=== PATIENT | female | born 2000 | race Caucasian/White ===

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

== ENCOUNTER 2021-01-01 11:42 | Emergency (ER) | payer MEDICAID, SELFPAY ==
[2021-01-01 11:47] VITALS: BP 192/159; PULSE 111; RESP 22; TEMP 36.9; O2SAT 98; BMI 42.0
--- NOTE | 2021-01-01 11:58 | ED_ITS ---
HPI - Abdominal Pain General: Chief Complaint: Urogenital-Female Stated Complaint: adverse med reaction: midol Time Seen by Provider: 01/01/21 11:51 Source: patient Mode of arrival: ambulatory Limitations: no limitations History of Present Illness: HPI narrative: Patient is a 20-year-old female who presents to ED today with a complaint of lower abdominal and pelvic pain that be vira earlier today while at work. Patient tells me she is expecting to start her menstrual cycle soon and initially thought the pain was secondary to menstrual cramps. She tried treating with Midol without relief. Patient has a known history of PCOS and often has pain accompanying this however states this is very uncharacteristic. She is not complaining of vaginal discharge or vaginal odor. No new sexual partners or concern for STDs. She is not having urinary symptoms. She states her pain radiates into her back. She feels nauseous but has not had any episodes of vomiting. She chronically has intermittent diarrhea secondary to Metformin use. She has not noticed any changes in her bowel movement. She reports no chance of . No fever/chills. MD elicited complaint: abdominal pain (pelvic pain) Pertinent past history: none Onset (ago): hour(s) Pain Consistency: constant Location: Suprapubic and Pelvis Quality: cramping Radiation: back Migration to: no migration Exacerbating factors: nothing Relieving factors: nothing Associated Symptoms: Reports diarrhea (chronic-intermittent; reports due to metformin use) and nausea; Denies change in bowel habits, change in stool character, chills, dysuria, fever(s), hematochezia, melena and vomiting Related Data: Date of Last Menstrual Period: 02/10/20 Patient : No Review of Systems Const: Denies: fever(s), chills, body aches, fatigue or malaise Card: Denies: chest pain Resp: Denies: dyspnea GI: Reports: abdominal pain, nausea and diarrhea (chronic-intermittent; reports due to metformin use); Denies: vomiting, change in bowel habits, pain on defecation, change in stool character, hematochezia or melena : Denies: flank pain, difficulty voiding, dysuria, urinary frequency, urinary urgency or urinary hesitancy Musc: Reports: back pain; Denies: neck pain, extremity pain, extremity swelling, joint pain or joint swelling Skin/Breast: Denies: rash Neuro: Denies: headache(s) PFS ED PFS: Medical History (Updated 01/01/21 @ 14:23 by FRIDA Mcdonald) Bipolar disorder Polycystic ovaries Social anxiety disorder Surgical History No pertinent past surgical history Family History Grandmother Ovarian cancer maternal Diabetes maternal Mother Hypertension Stroke Social History Smoking and tobacco status: never smoked Alcohol intake: never Female Reproductive History: Date of last menstrual period: 02/10/20 Physical Exam Const: COMMON NORMALS: patient oriented x3, no limitations and alert GENERAL APPEARANCE: cooperative and in distress (appears uncomfortable secondary to pain) NUTRITIONAL APPEARANCE: obese ORIENTATION/CONSCIOUSNESS: Yes awake, Yes oriented to person, Yes oriented to place and Yes oriented to time HENMT: COMMON NORMALS: normocephalic and atraumatic HEAD & SCALP: normocephalic and atraumatic Resp: COMMON NORMALS: normal respiratory effort and clear to auscultation bilaterally AUSCULTATION: clear to auscultation bilaterally Cardio: COMMON NORMALS: regular rate and regular rhythm RATE: regular rate RHYTHM: regular rhythm GI: COMMON NORMALS: Normal to inspection, nondistended, normoactive bowel sounds present, Soft to palpation, No hepatosplenomegaly present and no masses AUSCULTATION: Yes normoactive bowel sounds PALPATION: Yes Soft to palpation, Yes Tenderness to palpation present (GI) (throughout lower abdomen/pelvis) and Yes No hepatosplenomegaly present : COMMON NORMALS: Yes no CVA tenderness BLADDER/KIDNEY EXAM: Yes no CVA tenderness Back/Pelvis: COMMON NORMALS: no CVA tenderness THORACIC SPINE/UPPER BACK: Yes thoracic ROM normal and No thoracic spinal tenderness LUMBAR SPINE/LOWER BACK: Yes lumbar ROM normal, No lumbar spinal tenderness and Yes paraspinal muscle tenderness PELVIS: Yes buttocks normal SACROILIAC JOINTS: Yes SI j oints normal BACK IMAGE (FEMALE): 1. 2. Extremity: GENERAL: Yes normal exam except as noted Neuro: COMMON NORMALS: patient oriented x3 SENSORIUM/ORIENTATION: Yes alert, Yes oriented to person, Yes oriented to place and Yes oriented to time Skin: COMMON NORMALS: no rashes or lesions noted GENERAL SKIN EXAM: no rashes or lesions noted TRAUMA: no lacerations or abrasions Course Vital Signs: Vital signs: Vital Signs Temperature 98.5 F 01/01/21 11:47 Pulse Rate 99 01/01/21 13:28 Respiratory Rate 18 01/01/21 13:28 Blood Pressure 149/91 01/01/21 13:28 Pulse Oximetry 99 01/01/21 13:28 MDM - Abdominal Pain MDM Narrative: Medical decision making narrative: Patient's vital signs are stable. She was initially hypertensive and tachycardic upon arrival however these improved after IV pain medication. She does have an 18.6 white count with a left shift. She has a normal lactate. Chemistry panel is negative. is negative. UA is normal. Ultrasound of her pelvis showing minimal nonspecific fluid in the endocervical canal. She has a possible endometrial polyp. Remainder of pelvic ultrasound is normal. CT scan showing a few nonobstructing left renal calyceal stones and mild right lower quadrant mesenteric adenitis. All of these findings are nonspecific and I am not sure how much are contributing to patient's current complaints of pain. Ultimately none of the findings are surgical. She will be discharged home with pain and nausea medications and recommend follow-up with primary care if symptoms persist. Strict return to ED precautions given. Lab Data: Labs: Lab Results 01/01/21 01/01/21 01/01/21 Range/Units 12:10 12:10 12:10 WBC 18.6 H (4.5-13.0) 10^3/ uL RBC 4.86 (4.1-5.3) 10^6/u L Hgb 13.1 (11.5-15.3) g/dL Hct 39.4 (37.0-47.0) % MCV 81.1 (81-99) fL MCH 27.0 L (28.0-34.0) pg MCHC 33.2 (30.0-36.0) g/dL RDW 13.5 (12.1-15.1) % Plt Count 399 (130-400) 10^3/c mm MPV 10.5 H (7.4-10.4) fL Neut % (Auto) 79.7 % Lymph % (Auto) 15.9 % Moh[place] % (Auto) 3.5 % Eos % (Auto) 0.2 % Baso % (Auto) 0.3 % Neut # (Auto) 14.81 H (1.8-8.0) 10^3/u L Lymph # (Auto) 3.0 (1.5-6.5) 10^3/u L Moh[place] # (Auto) 0.7 (0.2-0.9) 10^3/u L Eos # (Auto) 0.0 (0.0-0.8) 10^3/u L Baso # (Auto) 0.1 (0.0-0.1) 10^3/u L Nucleated RBC % (a uto) 0 % Nucleated RBCs # 0.0 /100WBC Sodium Cancelled Potassium Cancelled Chloride Cancelled Carbon Dioxide Cancelled Anion Gap Cancelled BUN Cancelled Creatinine Cancelled GFR Calculation Cancelled Glucose Cancelled Calculated Osmolal ity Cancelled Lactic Acid (0.5-2.2) mmol/L Calcium Cancelled Total Bilirubin Cancelled AST Cancelled ALT Cancelled Alkaline Phosphata se Cancelled Total Protein Cancelled Albumin Cancelled Globulin Cancelled Lipase Cancelled HCG, Qual Negative (Negative) Urine Color (Yellow) Urine Appearance (CLEAR) Urine pH (5-7) Ur Specific Gravit y (1.005-1.030) Urine Protein (Negative) Urine Glucose (UA) (Normal) Urine Ketones (Negative) Urine Blood (Negative) Urine Nitrate (Negative) Urine Bilirubin (Negative) Urine Urobilinogen (Negative) mg/dL Ur Leukocyte Lauren ase (Negative) 01/01/21 01/01/21 01/01/21 Range/Units 12:10 12:50 13:10 WBC (4.5-13.0) 10^3/ uL RBC (4.1-5.3) 10^6/u L Hgb (11.5-15.3) g/dL Hct (37.0-47.0) % MCV (81-99) fL MCH (28.0-34.0) pg MCHC (30.0-36.0) g/dL RDW (12.1-15.1) % Plt Count (130-400) 10^3/c mm MPV (7.4-10.4) fL Neut % (Auto) % Lymph % (Auto) % [place] % (Auto) % Eos % (Auto) % Baso % (Auto) % Neut # (Auto) (1.8-8.0) 10^3/u L Lymph # (Auto) (1.5-6.5) 10^3/u L Moh[place] # (Auto) (0.2-0.9) 10^3/u L Eos # (Auto) (0.0-0.8) 10^3/u L Baso # (Auto) (0.0-0.1) 10^3/u L Nucleated RBC % (a uto) % Nucleated RBCs # /100WBC Sodium 141 Potassium 3.8 Chloride 107 Carbon Dioxide 20 L Anion Gap 17.8 BUN 16 Creatinine 0.6 GFR Calculation 128.8 Glucose 95 Calculated Osmolal ity 293 Lactic Acid 1.6 (0.5-2.2) mmol/L Calcium 9.3 Total Bilirubin 0.2 AST 12 ALT 11 Alkaline Phosphata se 104 Total Protein 7.3 Albumin 4.5 Globulin 2.8 Lipase 19 HCG, Qual (Negative) Urine Color Yellow (Yellow) Urine Appearance Clear (CLEAR) Urine pH 5 (5-7) Ur Specific Gravit y 1.025 (1.005-1.030) Urine Protein Neg (Negative) Urine Glucose (UA) Norm (Normal) Urine Ketones Negative (Negative) Urine Blood Neg (Negative) Urine Nitrate Negative (Negative) Urine Bilirubin Neg (Negative) Urine Urobilinogen Norm (Negative) mg/dL Ur Leukocyte Lauren ase Negative (Negative) Imaging Data ^: US TV pelvis: Radiologist's impression: [address] [id number] Ultrasound Report Signed Patient: Christo Mcduffie Unit #: [id number] : 2000 Age/Sex: 20 / F ADM Date: 01/01/21 Loc: ER Room/Bed: Attending Dr: Ordering Provider/Ordering MD: Ary Gonsales Date of Service: 01/01/21 Procedure(s): US pelvic with transvaginal Accession Number(s): [id number] Report Number: [id number] PROCEDURE INFORMATION: Exam: US Nonobstetric Pelvis; Complete Exam date and time: 01/01/2021 11:57 AM Age: 20 years old Clinical indication: Pelvic pain; Additional info: Severe pelvic pain TECHNIQUE: Imaging protocol: Transabdominal pelvic nonobstetric ultrasound. Complete exam. Real time ultrasound with image documentation. COMPARISON: CT abdomen pelvis w con* [id number] 02/22/2020 9:29 PM FINDINGS: Uterus/cervix: 6.4 x 2.4 x 3.1 cm uterus. 2.4 mm endometrial stripe. Minimal amount of nonspecific fluid seen in the endocervical canal. One or more nabothian cysts. Possible 8 x 4 mm endometrial polyp or other echogenic oval-shaped lesion within the lower uterine segment or proximal cervix, series 1, image 12. Right adnexa: 1.4 x 2.2 x 1.3 cm right ovary with estimated volume 2.1 cc. Left adnexa: 2.2 x 2.3 x 1.2 cm left ovary with estimated volume 3.2 cc. Intraperitoneal space: No intraperitoneal fluid. Urinary bladder: Normal. US/US pelvic with transvaginal IMPRESSION: 1. Minimal amount of nonspecific fluid seen in the endocervical canal. 2. Possible 8 x 4 mm endometrial polyp or other echogenic oval-shaped lesion within the lower uterine segment or proximal cervix, series 1, image 12. 3. Normal ovarian perfusion bilaterally with no torsion. Dictated By: Gucci Nielson MD Signed By: Gucci Nielson MD Signed Date/Time: 01/01/211400 DD/ 00 CT Abd/Pel: Radiologist's impression: [facility] [address] [id number] Scan ReportSigned Patient: Christo Mcduffie #: [id number]: 2000Acct#:[id number]/Sex: 20 / FADM Date: 01/01/21Loc: ERRoom/Bed:Attending Dr: Ordering Provider/Ordering MD: Ary Gonsales Date of Service: 01/01/21 Procedure(s): CT abdomen pelvis w con* [id number] Accession Number(s): [id number] Report Number: [id number] PROCEDURE INFORMATION: Exam: CT Abdomen And Pelvis With Contrast Exam date and time: 01/01/2021 12:21 PM Age: 20 years old Clinical indication: Abdominal pain; Localized; Patient HX: HX of pcos C/O severe lower abd pain; Additional info: Lower abdominal pain radiating to back TECHNIQUE: Imaging protocol: Computed tomography of the abdomen and pelvis with contrast. Radiation optimization: All CT scans at this facility use at least one of these dose optimization techniques: automated exposure control; mA and/or kV adjustment per patient size (includes targeted exams where dose is matched to clinical indication); or iterative reconstruction. Contrast material: OMNI 300; Contrast volume: 95 ml; Contrast route: INTRAVENOUS (IV); COMPARISON: CT abdomen pelvis w con* [id number] 02/22/2020 9:29 PM RADIATION DOSE METRICS: Total DLP (mGy-cm): 1839.81 FINDINGS: Liver: Normal. No mass. Gallbladder and bile ducts: Normal. No calcified stones. No ductal dilation. Pancreas: Normal. No ductal dilation. Spleen: Normal. No splenomegaly. Adrenal glands: Normal. No mass. Kidneys and ureters: One or more nonobstructing left renal calyceal stones. Stomach and bowel: Unremarkable. No obstruction. No mucosal thickening. Appendix: Normal appendix. Intraperitoneal space: Mild right lower quadrant mesenteric adenitis. Vasculature: Unremarkable. No abdominal aortic aneurysm. Lymph nodes: Numerous right lower quadrant mesenteric lymph nodes consistent with mesenteric adenitis. Urinary bladder: Unremarkable as visualized. Reproductive: Small ovaries bilaterally. Bones/joints: Unremarkable. No acute fracture. Soft tissues: Unremarkable. CT/CT abdomen pelvis w con* [id number] IMPRESSION: 1. One or more nonobstructing left renal calyceal stones. 2. Small ovaries bilaterally. 3. Mild right lower quadrant mesenteric adenitis. Radiation Dose CTDIVOL = (mGy): DLP = 1839.81 (mGy-cm) Dictated By:Gucci Nielson MDSigned By:Gucci Nielson MDSigned Date/Time:01/01/21 1414DD/ 1413 Discharge Plan Discharge Patient Disposition: Home Clinical Impression: Abdominal pain of unknown cause Condition: Stable Prescriptions: New hydrocodone-acetaminophen 5-325 mg tablet 1 tab PO Q6H PRN (Reason: pain) Qty: 14 RF: 0 Zofran 4 mg tablet 4 mg PO Q6H PRN (Reason: nausea and vomiting) Qty: 14 RF: 0 No Action metformin 1,000 mg tablet extended release 24hr 1,000 mg PO BID RF: 0 amitriptyline 100 mg tablet 100 mg PO BEDTIME RF: 0 tizanidine 4 mg capsule 4 mg PO BID PRN (Reason: LOW BACK PAIN) RF: 0 norethindrone-e.estradiol-iron [.12/19 (28)] 1.5 mg-30 mcg (21)/75 mg (7) tablet 1 tab PO DAILY Qty: 84 RF: 1 Tension Headache Pain Reliever 500-65 mg Tablet 1 - 2 tab PO Q6H PRN (Reason: HEADACHE/PAIN) RF: 0 pantoprazole 40 mg tablet,delayed release (DR/EC) 40 mg PO DAILY RF: 0 Midol 500-25 mg Tablet 1 tab PO Q4H PRN (Reason: Pain) RF: 0 Discharge Orders: Discharge ED (Routine); Ordered 01/01/21 Ordered By: Ary Gonsales Referrals: David Lara MD [Primary Care Provider] - Patient Instructions: Abdominal Pain (ED), Opioid Safety Activity Restrictions/Additional Instructions: [facility] is committed to fighting the nationwide opiate epidemic. We are providing ALL patients with information regarding opiate safety. If you received opiate pain medication during your stay or if you received a prescription for opiate pain medication-please review this handout. If not, you may disregard. Thank you. As we discussed you need to return to the emergency department for worsening or severe abdominal pain or uncontrollable pain, repetitive episodes of vomiting or diarrhea, fevers greater than 100.4, severe flank pain, or any other concerns you may have. I hope you begin to feel better soon. Coding Level of Care Code ED Handle Machine Operator for Dinora Fwamauri Exam Comprehensive
[2021-01-01] MEDS: ondansetron 2 mg/ML SDV 2 mL 4 MG IVP (12:12)
[2021-01-01] MEDS: ketorolac 60 mg/2 mL INJ 30 MG IVP (12:13)
[2021-01-01 12:17] LABS: Basophils # 0.1 10^3/uL (0.0-0.1); Basophils % 0.3 %; Eosinophils % 0.2 %; Hematocrit 39.4 % (37.0-47.0); Hemoglobin 13.1 g/dL (11.5-15.3); Lymphocytes % 15.9 %; Mean Corpuscular HGB Conc 33.2 g/dL (30.0-36.0); Mean Corpuscular Volume 81.1 fL (81-99); Mean Platelet Volume 10.5 fL (7.4-10.4); Monocytes # 0.7 10^3/uL (0.2-0.9); Monocytes % 3.5 %; Neutrophils # 14.81 10^3/uL (1.8-8.0); Neutrophils % 79.7 %; Nucleated Red Blood Cells % 0 %; Platelet Count 399 10^3/cmm (130-400); Red Blood Count 4.86 10^6/uL (4.1-5.3); Red Cell Distribution Width 13.5 % (12.1-15.1); White Blood Count 18.6 10^3/uL (4.5-13.0)
--- NOTE | 2021-01-01 12:21 | CTR_ITS ---
PROCEDURE INFORMATION: Exam: CT Abdomen And Pelvis With Contrast Exam date and time: 01/01/2021 12:21 PM Age: 20 years old Clinical indication: Abdominal pain; Localized; Patient HX: HX of pcos C/O severe lower abd pain; Additional info: Lower abdominal pain radiating to back TECHNIQUE: Imaging protocol: Computed tomography of the abdomen and pelvis with contrast. Radiation optimization: All CT scans at this facility use at least one of these dose optimization techniques: automated exposure control; mA and/or kV adjustment per patient size (includes targeted exams where dose is matched to clinical indication); or iterative reconstruction. Contrast material: OMNI 300; Contrast volume: 95 ml; Contrast route: INTRAVENOUS (IV); COMPARISON: CT abdomen pelvis w con* [id number] 02/22/2020 9:29 PM RADIATION DOSE METRICS: Total DLP (mGy-cm): 1839.81 FINDINGS: Liver: Normal. No mass. Gallbladder and bile ducts: Normal. No calcified stones. No ductal dilation. Pancreas: Normal. No ductal dilation. Spleen: Normal. No splenomegaly. Adrenal glands: Normal. No mass. Kidneys and ureters: One or more nonobstructing left renal calyceal stones. Stomach and bowel: Unremarkable. No obstruction. No mucosal thickening. Appendix: Normal appendix. Intraperitoneal space: Mild right lower quadrant mesenteric adenitis. Vasculature: Unremarkable. No abdominal aortic aneurysm. Lymph nodes: Numerous right lower quadrant mesenteric lymph nodes consistent with mesenteric adenitis. Urinary bladder: Unremarkable as visualized. Reproductive: Small ovaries bilaterally. Bones/joints: Unremarkable. No acute fracture. Soft tissues: Unremarkable. CT/CT abdomen pelvis w con* [id number] IMPRESSION: 1. One or more nonobstructing left renal calyceal stones. 2. Small ovaries bilaterally. 3. Mild right lower quadrant mesenteric adenitis. Radiation Dose CTDIVOL = (mGy): DLP = 1839.81 (mGy-cm)
[2021-01-01 12:31] LABS: HCG, Serum Qual Negative (Negative)
[2021-01-01 12:35] LABS: Lactic Sepsis W/Reflex 1.6 mmol/L (0.5-2.2)
[2021-01-01 12:53] LABS: Add Urine Microscopic? NO; Charge for UA Resulting for Rev
[2021-01-01 12:58] LABS: Urine Appearance Clear (CLEAR); Urine Color Yellow (Yellow); pH Urine 5 (5-7)
[2021-01-01 12:59] LABS: Bilirubin Urine Neg (Negative); Blood Urine Neg (Negative); Glucose Urine UA Norm (Normal); Ketones Urine Negative (Negative); Leukocyte Esterase Urine Negative (Negative); Nitrate Urine Negative (Negative); Protein Urine Neg (Negative); Specific Gravity, Urine 1.025 (1.005-1.030); Urobilinogen Urine Norm (Negative)
[2021-01-01] MEDS: iohexol 300 mg/mL 100 mL Btl IV (13:17)
[2021-01-01 13:28] VITALS: BP 149/91; PULSE 99; RESP 18; O2SAT 99
[2021-01-01 13:34] LABS: Alanine Aminotransferase 11 U/L (0-33); Albumin Level 4.5 g/dL (3.5-5.2); Alkaline Phosphatase 104 IU/L (35-105); Anion Gap 17.8 (5-19); Aspartate Amino Transferase 12 U/L (0-32); Blood Urea Nitrogen 16 mg/dL (6-20); Calcium 9.3 mg/dL (8.5-10.5); Carbon Dioxide 20 mmol/L (22-29); Chloride 107 mmol/L (98-107); Globulin 2.8 g/dL (1.3-4.6); Glomerular Filtration Rate 128.8 mL/min (90-130); Glucose 95 mg/dL (65-115); Lipase 19 U/L (13-60); Osmolality Calculated 293 mOsm/kg (285-295); Potassium 3.8 mmol/L (3.5-5.1); Sodium 141 mmol/L (136-145); Total Bilirubin 0.2 mg/dL (0.15-1.2); Total Protein 7.3 g/dL (6.6-8.7)
[2021-01-01 14:41] VITALS: BP 149/91; PULSE 99; RESP 18; O2SAT 99
== END 2021-01-01 14:41 | disposition home or self-care (01) ==
PROVIDERS: Emergency Provider Physician Assistant; PCP Family Medicine
DX: R10.9 Unspecified abdominal pain (principal); Z79.84 Long term (current) use of oral hypoglycemic drugs; E28.2 Polycystic ovarian syndrome
CPT/HCPCS: 36415; 74177; 76830; 76856; 80053; 81003; 83605; 83690; 84703; 85025; 96374; 96375; 99283; J1885; J2405; Q9967

== ENCOUNTER → 2021-09-26 14:17 | Outpatient (BNVA) | payer MEDICAID, SELFPAY | PROVIDERS: PCP Family Medicine; Visit Provider Obstetrics & Gynecology | DX: Z30.9 Encounter for contraceptive management, unspecified (principal) | CPT/HCPCS: 81025 ==

== ENCOUNTER 2021-10-13 17:01 | Emergency (ER) | payer MEDICAID, SELFPAY ==
[2021-10-13 17:26] VITALS: BP 150/100; PULSE 100; RESP 15; TEMP 37; O2SAT 100; BMI 42.0
[2021-10-13 21:59] LABS: Basophils # 0.1 10^3/uL (0.0-0.1); Basophils % 0.4 %; Eosinophils # 0.1 10^3/uL (0.0-0.8); Eosinophils % 0.4 %; Hematocrit 46.9 % (37.0-47.0); Hemoglobin 14.2 g/dL (11.5-15.3); Lymphocytes # 4.4 10^3/uL (1.5-6.5); Lymphocytes % 30.3 %; Mean Corpuscular HGB Conc 30.3 g/dL (30.0-36.0); Mean Corpuscular Hemoglobin 27.3 pg (28.0-34.0); Monocytes # 0.6 10^3/uL (0.2-0.9); Monocytes % 4.3 %; Neutrophils # 9.28 10^3/uL (1.8-8.0); Nucleated Red Blood Cells % 0 %; Platelet Count 298 10^3/cmm (130-400); Red Blood Count 5.21 10^6/uL (4.1-5.3); White Blood Count 14.5 10^3/uL (4.5-13.0)
--- NOTE | 2021-10-13 21:59 | ED_ITS ---
HPI - Abdominal Pain General: Chief Complaint: Abdominal Pain Stated Complaint: ABD pain Time Seen by Provider: 10/13/21 21:50 Source: patient and family Mode of arrival: ambulatory Limitations: no limitations History of Present Illness: Patient is a 21-year-old female who presents to ED today along with her mother for concerns of epigastric/upper abdominal pain over the past 2 days. Patient states pain came on gradually. She states pain seems to be worse with eating and lying flat. She describes a burning sensation to her epigastrium and radiating up into her throat. She also states pain seems to radiate into her back. She is not having any nausea, vomiting, changes to bowel movements. She has had slight dysuria without urinary frequency, hesitancy, or urgency. No flank pain. No vaginal bleeding or discharge. No fevers. She does not complain of any chest pain, shortness of breath, difficulty breathing. Denies lightheadedness/dizziness. She has not tried any OTC medications for her discomfort. MD elicited complaint: abdominal pain Onset (ago): day(s) Location: Epigastric Severity: severe Pain scale (0-10): 8 Quality: burning Radiation: back Migration to: no migration Exacerbating factors: eating and other (lying flat) Relieving factors: nothing Associated Symptoms: Denies change in bowel habits, chills, diarrhea, dysuria, fever(s), nausea and vomiting Related Data: Date of Last Menstrual Period: 02/10/20 Patient : No Review of Systems Const: Denies: fever(s), chills, body aches, fatigue or malaise Card: Denies: chest pain Resp: Denies: dyspnea GI: Reports: abdominal pain; Denies: nausea, vomiting, diarrhea or change in bowel habits : Denies: flank pain, difficulty voiding, dysuria, urinary frequency or urinary urgency Musc: Denies: neck pain, extremity pain or joint pain Skin/Breast: Denies: rash Neuro: Denies: headache(s), numbness in extremities, weakness in extremities, sensory changes or dizziness PFS ED PFSH: Medical History (Updated 10/13/21 @ 22:44 by FRIDA Mcdonald) Bipolar disorder Polycystic ovaries Social anxiety disorder Surgical History No pertinent past surgical history Family History Grandmother Ovarian cancer maternal Diabetes maternal Mother Hypertension Stroke Father Hypertension Denies family history of CAD (coronary artery disease) Clotting disorder Hyperlipidemia Chronic kidney disease (CKD) Bleeding disorder Thyroid disease Social History Smoking and tobacco status: never smoked Alcohol intake: never Female Reproductive History: Date of last menstrual period: 02/10/20 Physical Exam Const: COMMON NORMALS: no acute distress, patient oriented x3, no limitations and alert GENERAL APPEARANCE: cooperative NUTRITIONAL APPEARANCE: obese morbidly obese ORIENTATION/CONSCIOUSNESS: Yes awake, Yes oriented to person, Yes oriented to place and Yes oriented to time HENMT: COMMON NORMALS: normocephalic and atraumatic HEAD & SCALP: normal to inspection, normocephalic and atraumatic Resp: COMMON NORMALS: normal respiratory effort and clear to auscultation bilaterally AUSCULTATION: clear to auscultation bilaterally Cardio: COMMON NORMALS: regular rate and regular rhythm RATE: regular rate RHYTHM: regular rhythm GI: COMMON NORMALS: Normal to inspection, nondistended, normoactive bowel sounds present, Soft to palpation and no masses INSPECTION: Yes normal to inspection AUSCULTATION: Yes normoactive bowel sounds PALPATION: Yes Soft to palpation and Yes Tenderness to palpation present (GI) (epigastric) : COMMON NORMALS: Yes no CVA tenderness BLADDER/KIDNEY EXAM: Yes no CVA tenderness Back/Pelvis: COMMON NORMALS: no CVA tenderness, thoracic and lumbar spine normal to inspection, no thoracic nor lumbar tenderness, thoraco-lumbar ROM normal and straight leg raise negative bilaterally Extremity: GENERAL: Yes normal exam except as noted Neuro: COMMON NORMALS: patient oriented x3, moves all extremities, no focal motor deficits and no sensory deficits noted SENSORIUM/ORIENTATION: Yes alert, Yes oriented to person, Yes oriented to place and Yes oriented to time Skin: COMMON NORMALS: no rashes or lesions noted GENERAL SKIN EXAM: no rashes or lesions noted Course Vital Signs: Vital signs: Vital Signs Temperature 98.6 F 10/13/21 17:26 Pulse Rate 79 10/13/21 22:09 Respiratory Rate 18 10/13/21 22:09 Blood Pressure 155/98 10/13/21 22:09 Pulse Oximetry 100 10/13/21 22:09 MDM - Abdominal Pain Medical Decision Making Patient on exam is tenderness to her epigastric region. She has no tenderness to her RUQ. Pain is reproducible by palpation. Patient's blood work is fairly unremarkable. Tempted GI cocktail without relief of her symptoms. Her vital signs are stable-mild hypertension. Discussed proceeding with CT imaging however patient states she would like to hold off on this time and states she will monitor symptoms closely at home. She states she has to work in the morning would like to go home and get some sleep. Strict return to ED precautions given regarding worsening pain, chest pain, shortness of breath, difficulty breathing, hemoptysis, bloody emesis or bloody stools, fevers, lightheadedness/dizziness, or any other concerns she may have. Otherwise she may follow-up with her PCP. Patient and her mother verbalized understanding. Lab Data : 10/13/21 21:45 10/13/21 21:45 Labs/Radiology: Laboratory Results WBC 14.5 10^3/uL (4.5-13.0) H 10/13/21 21:45 RBC 5.21 10^6/uL (4.1-5.3) 10/13/21 21:45 Hgb 14.2 g/dL (11.5-15.3) 10/13/21 21:45 Hct 46.9 % (37.0-47.0) 10/13/21 21:45 MCV 90.0 fl (81-99) 10/13/21 21:45 MCH 27.3 pg (28.0-34.0) L 10/13/21 21:45 MCHC 30.3 g/dL (30.0-36.0) 10/13/21 21:45 RDW 13.0 % (12.1-15.1) 10/13/21 21:45 Plt Count 298 10^3/cmm (130-400) 10/13/21 21:45 MPV 11.0 fL (7.4-10.4) H 10/13/21 21:45 Neut % (Auto) 64.0 % 10/13/21 21:45 Lymph % (Auto) 30.3 % 10/13/21 21:45 [place] % (Auto) 4.3 % 10/13/21 21:45 Eos % (Auto) 0.4 % 10/13/21 21:45 Baso % (Auto) 0.4 % 10/13/21 21:45 Neut # (Auto) 9.28 10^3/uL (1.8-8.0) H 10/13/21 21:45 Lymph # (Auto) 4.4 10^3/uL (1.5-6.5) 10/13/21 21:45 [place] # (Auto) 0.6 10^3/uL (0.2-0.9) 10/13/21 21:45 Eos # (Auto) 0.1 10^3/uL (0.0-0.8) 10/13/21 21:45 Baso # (Auto) 0.1 10^3/uL (0.0-0.1) 10/13/21 21:45 Nucleated RBC % (auto) 0 % 10/13/21 21:45 Nucleated RBCs # 0.0 /100WBC 10/13/21 21:45 Sodium 138 mmol/L (136-145) 10/13/21 21:45 Potassium 4.0 mmol/L (3.5-5.1) 10/13/21 21:45 Chloride 102 mmol/L (98-107) 10/13/21 21:45 Carbon Dioxide 18 mmol/L (22-29) L 10/13/21 21:45 Anion Gap 22.0 (5-19) H 10/13/21 21:45 BUN 10 mg/dL (6-20) 10/13/21 21:45 Creatinine 0.6 mg/dL (0.5-0.9) 10/13/21 21:45 GFR Calculation 127.5 mL/min (90-130) 10/13/21 21:45 Glucose 80 mg/dL (65-115) 10/13/21 21:45 Calculated Osmolality 284 mOsm/kg (285-295) L 10/13/21 21:45 Calcium 9.8 mg/dL (8.5-10.5) 10/13/21 21:45 Total Bilirubin 0.2 mg/dL (0.15-1.2) 10/13/21 21:45 AST 16 U/L (0-32) 10/13/21 21:45 ALT 13 U/L (0-33) 10/13/21 21:45 Alkaline Phosphatase 108 IU/L (35-105) H 10/13/21 21:45 Total Protein 7.7 g/dL (6.6-8.7) 10/13/21 21:45 Albumin 5.2 g/dL (3.5-5.2) 10/13/21 21:45 Globulin 2.5 g/dL (1.3-4.6) 10/13/21 21:45 Lipase 16 U/L (13-60) 10/13/21 21:45 HCG, Qual Negative (Negative) 10/13/21 21:45 Urine Color Yellow (Yellow) 10/13/21 21:57 Urine Appearance Clear (CLEAR) 10/13/21 21:57 Urine pH 5 (5-7) 10/13/21 21:57 Ur Specific [place] 1.025 (1.005-1.030) 10/13/21 21:57 Urine Protein Neg (Negative) 10/13/21 21:57 Urine Glucose (UA) Norm (Normal) 10/13/21 21:57 Urine Ketones Negative (Negative) 10/13/21 21:57 Urine Blood Neg (Negative) 10/13/21 21:57 Urine Nitrate Negative (Negative) 10/13/21 21:57 Urine Bilirubin 1+ (Negative) H 10/13/21 21:57 Urine Urobilinogen 1 mg/dL (Negative) H 10/13/21 21:57 Ur Leukocyte Esterase Negative (Negative) 10/13/21 21:57 Urine RBC 0-4 /hpf (0-2) H 10/13/21 21:57 Urine WBC 0-4 /hpf (0-5) H 10/13/21 21:57 Ur Squamous Epith Cells 0-4 /hpf (0-5) H 10/13/21 21:57 Amorphous Sediment Not Reportable 10/13/21 21:57 Urine Bacteria 2+ /hpf (NONE) H 10/13/21 21:57 Urine Mucus 1+ /hpf 10/13/21 21:57 Discharge Plan Discharge Patient Disposition: Home Clinical Impression: Epigastric abdominal pain Condition: Stable Prescriptions: No Action metformin 1,000 mg tablet extended release 24hr 1,000 mg PO BID 0RF amitriptyline 100 mg tablet 100 mg PO BEDTIME 0RF Rx Instructions: *SEE PHARMACY COMMENT* tizanidine 4 mg capsule 4 mg PO BID PRN (Reason: LOW BACK PAIN) 0RF norethindrone ac-eth estradiol [ (21)] 1.5-30 mg-mcg tablet 1 tab PO DAILY Qty: 63 6RF Tension Headache Pain Reliever 500-65 mg Tablet 1 - 2 tab PO Q6H PRN (Reason: HEADACHE/PAIN) 0RF Midol 500-25 mg Tablet 1 tab PO Q4H PRN (Reason: Pain) 0RF Discharge Orders: Discharge ED (Routine); Ordered 10/13/21 Ordered By: Ary Gonsales Referrals: David Lara MD [Primary Care Provider] - Patient Instructions: Abdominal Pain (ED) Coding Level of Care Code ED Control Panel Tester for Chg Fwd Exam Comprehensive
[2021-10-13] MEDS: lidocaine 2% viscous 15 ML, aluminum-mag hydrox-simethicon 30 ML, sucralfate oral liq 1 GM PO (22:03)
[2021-10-13 22:09] VITALS: BP 155/98; PULSE 79; RESP 18; O2SAT 100
[2021-10-13 22:12] LABS: HCG, Serum Qual Negative (Negative); Slide Review Slide Review Perform
[2021-10-13 22:12] LABS: Urine Appearance Clear (CLEAR); Urine Color Yellow (Yellow); pH Urine 5 (5-7)
[2021-10-13 22:13] LABS: Bilirubin Urine 1+ (Negative); Blood Urine Neg (Negative); Glucose Urine UA Norm (Normal); Ketones Urine Negative (Negative); Leukocyte Esterase Urine Negative (Negative); Nitrate Urine Negative (Negative); Protein Urine Neg (Negative); Specific Gravity, Urine 1.025 (1.005-1.030); Urobilinogen Urine 1 mg/dL (Negative)
[2021-10-13 22:20] LABS: Add Urine Culture? Yes; Add Urine Microscopic? YES; Bacteria Urine 2+ /hpf; Mucus Urine 1+ /hpf; RBC Urine 0-4 /hpf (0-2); Squamous Epithelial Cell Urine 0-4 /hpf (0-5); WBC Urine 0-4 /hpf (0-5)
[2021-10-13 22:21] LABS: Alanine Aminotransferase 13 U/L (0-33); Albumin Level 5.2 g/dL (3.5-5.2); Alkaline Phosphatase 108 IU/L (35-105); Aspartate Amino Transferase 16 U/L (0-32); Blood Urea Nitrogen 10 mg/dL (6-20); Calcium 9.8 mg/dL (8.5-10.5); Carbon Dioxide 18 mmol/L (22-29); Chloride 102 mmol/L (98-107); Globulin 2.5 g/dL (1.3-4.6); Glomerular Filtration Rate 127.5 mL/min (90-130); Glucose 80 mg/dL (65-115); Lipase 16 U/L (13-60); Osmolality Calculated 284 mOsm/kg (285-295); Sodium 138 mmol/L (136-145); Total Bilirubin 0.2 mg/dL (0.15-1.2); Total Protein 7.7 g/dL (6.6-8.7)
== END 2021-10-13 23:13 | disposition home or self-care (01) ==
PROVIDERS: Emergency Medicine; Emergency Provider Physician Assistant; PCP Family Medicine
DX: R10.13 Epigastric pain (principal); I10 Essential (primary) hypertension
CPT/HCPCS: 36415; 80053; 81001; 83690; 84703; 85025; 87086; 99283

== ENCOUNTER → 2022-08-30 16:30 | Outpatient (BNVA) | payer MEDICAID, SELFPAY | PROVIDERS: PCP Family Medicine; Visit Provider Nurse Practitioner Women's Health | DX: O03.9 Complete or unspecified spontaneous abortion without complication (principal); Z51.89 Encounter for other specified aftercare; Z12.4 Encounter for screening for malignant neoplasm of cervix; Z3A.00 Weeks of gestation of pregnancy not specified | CPT/HCPCS: 86850; 86900; 88175 ==

== ENCOUNTER 2023-09-12 11:50 | Outpatient (CLI) | payer MEDICAID, SELFPAY ==
--- NOTE | 2023-09-12 12:00 | MR_ITS ---
WS: [id number] MRI BRAIN WITHOUT CONTRAST HISTORY: MIGRAINE COMPARISON: CT head 01/01/2019 TECHNIQUE: Diffusion imaging, multiplanar T1, T2 and FLAIR imaging obtained. No evidence for acute infarct or hemorrhage. Bell-white matter differentiation is normal. No remote or acute infarcts are volume loss. Ventricles and extra-axial spaces are normal. No inferior displacement of cerebellar tonsils. Small fluid collection at the RIGHT cerebellopontine angle measures 2.1 x 1.0 cm is most likely a small arachnoid cyst. Also noted on the prior CT from . The sella turcica and pituitary gland are unremarkable. Dural venous sinuses and [facility] [place] demonstrate no abnormality on this unenhanced studies. Paranasal sinuses: Very slight mucoperiosteal thickening in the ethmoid and RIGHT maxillary sinus. No air-fluid levels. Mastoid air cells: Normal. Calvarium and scalp: Intact. Small bilateral cervical chain lymph nodes. IMPRESSION: 1. No acute intracranial hemorrhage or edema. 2. No infarct. 3. Minimal mucoperiosteal thickening in the sinus cavities with no air-fluid levels. 4. Normal ventricles.
== END 2023-09-12 11:51 | disposition home or self-care (01) ==
LOC: RAD 11:58
PROVIDERS: PCP Family Medicine; Visit Provider Physician Assistant
DX: G43.909 Migraine, unspecified, not intractable, without status migrainosus (principal); G93.0 Cerebral cysts
CPT/HCPCS: 70551

== ENCOUNTER → 2024-01-09 08:00 | Outpatient (BNVA) | payer MEDICAID, SELFPAY | PROVIDERS: PCP Family Medicine; Visit Provider Nurse Practitioner Women's Health | DX: N92.6 Irregular menstruation, unspecified (principal); E28.2 Polycystic ovarian syndrome | CPT/HCPCS: 81025; 83036; 84702 ==

== ENCOUNTER → 2024-01-23 09:13 | Outpatient (BNVA) | payer MEDICAID, SELFPAY | PROVIDERS: PCP Family Medicine; Visit Provider Nurse Practitioner Women's Health | DX: Z34.80 Encounter for supervision of other normal pregnancy, unspecified trimester (principal) | CPT/HCPCS: 76801 ==

== ENCOUNTER → 2024-01-30 07:56 | Outpatient (BNVA) | payer BC, MEDICAID, SELFPAY | PROVIDERS: PCP Family Medicine; Visit Provider Nurse Practitioner Women's Health | DX: Z34.90 Encounter for supervision of normal pregnancy, unspecified, unspecified trimester (principal) | CPT/HCPCS: 80307; 82950; 84315; 85025; 86592; 86762; 86803; 86850; 86900; 87086; 87340; 87806 ==

== ENCOUNTER → 2024-02-14 08:16 | Outpatient (BNVA) | payer BC, MEDICAID, SELFPAY | PROVIDERS: PCP Family Medicine; Visit Provider Obstetrics & Gynecology | DX: Z34.80 Encounter for supervision of other normal pregnancy, unspecified trimester (principal) | CPT/HCPCS: 82951; 82952 ==

== ENCOUNTER → 2024-03-10 14:06 | Outpatient (BNVA) | payer BC, MEDICAID, SELFPAY | PROVIDERS: PCP Family Medicine; Visit Provider Nurse Practitioner Women's Health | DX: Z34.80 Encounter for supervision of other normal pregnancy, unspecified trimester (principal) | CPT/HCPCS: 82105; 84315 ==

== ENCOUNTER → 2024-03-20 14:20 | Outpatient (BNVA) | payer BC, MEDICAID, SELFPAY | PROVIDERS: PCP Family Medicine; Visit Provider Obstetrics & Gynecology | DX: Z34.80 Encounter for supervision of other normal pregnancy, unspecified trimester (principal) | CPT/HCPCS: 84315; 87491; 87591 ==

== ENCOUNTER → 2024-04-10 15:35 | Outpatient (BNVA) | payer BC, MEDICAID, SELFPAY | PROVIDERS: PCP Family Medicine; Visit Provider Obstetrics & Gynecology | DX: Z36.2 Encounter for other antenatal screening follow-up (principal); Z3A.20 20 weeks gestation of pregnancy | CPT/HCPCS: 76805 ==

== ENCOUNTER 2024-06-26 11:55 | Outpatient (CLI) | payer BC, MEDICAID, SELFPAY ==
[2024-06-26 12:14] VITALS: BP 125/67; PULSE 100
[2024-06-26 12:21] VITALS: BMI 48.4
[2024-06-26 12:39] VITALS: BP 132/75; PULSE 106
[2024-06-26 12:59] VITALS: BP 118/70; PULSE 103
== END 2024-06-26 13:15 | disposition home or self-care (01) ==
LOC: OPOB 11:58 → OBGYN 12:00
PROVIDERS: PCP Family Medicine; Visit Provider Obstetrics & Gynecology
DX: O24.419 Gestational diabetes mellitus in pregnancy, unspecified control (principal); Z3A.00 Weeks of gestation of pregnancy not specified
CPT/HCPCS: 59025; 76816; 76819

== ENCOUNTER 2024-06-28 01:01 | Outpatient (CLI) | payer BC, MEDICAID, SELFPAY ==
[2024-06-28] VITALS (35 sets, daily range): BP systolic 99–132; BP diastolic 53–79; PULSE 83–111; RESP 16; TEMP 35.7; O2SAT 99–100; BMI 48.4
[2024-06-28 01:33] LABS: Bilirubin Urine Negative (Negative); Blood Urine Negative (Negative); Glucose Urine UA Negative (Normal); Ketones Urine Negative (Negative); Leukocyte Esterase Urine Negative (Negative); Nitrate Urine Negative (Negative); Protein Urine Negative (Negative); Specific Gravity, Urine 1.014 (1.005-1.030); Urine Appearance Clear (CLEAR); Urine Color Yellow (Yellow); Urobilinogen Urine 0.2 mg/dL (Negative); pH Urine 6.5 (5-7)
[2024-06-28 01:35] LABS: UA Manual Slide Review YES; UA Slide Review UA Slide Review Perf
[2024-06-28 01:35] LABS: Actim Prom Negative
[2024-06-28 01:42] LABS: Add Urine Culture? No; Bacteria Urine TRACE /hpf; RBC Urine 0-4 /hpf (0-2)
[2024-06-28] MEDS: terbutaline 1 mg/mL INJ 0.25 MG SUBCUT (01:59)
[2024-06-28 02:33] LABS: Basophils % 0.3 %; Eosinophils # 0.1 10^3/uL (0.0-0.8); Eosinophils % 0.9 %; Lymphocytes % 19.7 %; Mean Corpuscular HGB Conc 32.1 g/dL (30-55); Mean Corpuscular Hemoglobin 25.9 pg (27-33); Mean Corpuscular Volume 80.5 fl (85-98); Mean Platelet Volume 10.1 fL (7.4-10.4); Monocytes # 0.8 10^3/uL (0.2-0.9); Monocytes % 5.3 %; Neutrophils # 11.02 10^3/uL (1.8-7.7); Neutrophils % 72.3 %; Nucleated Red Blood Cells % 0 %; Platelet Count 255 10^3/cmm (157-399); White Blood Count 15.22 10^3/uL (3.29-11.43)
[2024-06-28 02:56] LABS: Alanine Aminotransferase < 5 U/L (0-33); Albumin Level 3.5 g/dL (3.5-5.2); Alkaline Phosphatase 121 U/L (35-105); Anion Gap 13.8 (5-19); Aspartate Amino Transferase 9 U/L (0-32); Blood Urea Nitrogen 8 mg/dL (6-20); Calcium 9.3 mg/dL (8.5-10.5); Carbon Dioxide 19 mmol/L (22-29); Chloride 104 mmol/L (98-107); Globulin 2.8 g/dL (1.3-4.6); Glomerular Filtration Rate 152.9 mL/min (90-130); Glucose 85 mg/dL (65-115); Osmolality Calculated 274 mOsm/kg (285-295); Potassium 3.8 mmol/L (3.5-5.1); Sodium 133 mmol/L (136-145); Total Bilirubin 0.2 mg/dL (0.15-1.2); Total Protein 6.3 g/dL (6.6-8.7)
[2024-06-28] MEDS: lactated ringers 1,000 ML 125 ML IV (03:15)
[2024-06-28] MEDS: betamethasone susp 6 mg/mL 1 mL (per mL) 12 MG IM (03:15)
[2024-06-28] MEDS: NIFEdipine 10 mg Capsule PO (04:54)
--- NOTE | 2024-06-28 07:16 | P.TNLD_ITS ---
OB L&D Triage Visit Information: Date of evaluation: 06/28/24 Comments/Additional reason(s) for visit: 24-year-old female G2, P0 at 32.3 weeks gestation seen in labor and delivery triage with complaints of possible contractions and pelvic pressure. CHENTE 08/20/2024. Patient attends OB clinic with Dr. Roblero. Patient's has been complicated with gestational diabetes which is treated with metformin and insulin 32 units at 3 PM and 25 units at 3 AM. Patient uses a continuous glucose monitor. Patient also admits to anxiety and depression and was recently started on Zoloft. She denies severe mood swings and denies ideas of harming herself or others. Patient had complaint of onset of possible contractions occurring around 10 PM on 06/27/2024. She denied leakage of fluid or vaginal bleeding and admitted to good movement. EFM?category 1 Contractions every 4 to 6 minutes with discomfort rated 6/10. Cervix?closed Patient's contractions were monitored and tocolytic therapy including IV fluid hydration, 0.25 terbutaline and nifedipine 10 mg was given. Contractions spaced then resolved. Betamethasone 12 mg was given IM and patient is to return in 12 hours for second dose. labor and delivery have been reviewed with patient. Warnings of leakage of fluid, vaginal bleeding and decreased movement are return of uterine contractions has been reviewed with patient of reasons to return to labor and delivery. Otherwise patient is to see Dr. Roblero Sunday or Sunday in the clinic. Patient will be taken off work today through Sunday for rest at home. Evaluation: Baseline heart rate: 140 monitor accelerations: Present 15x15 monitor decelerations: None Cervical dilation (cm): 0 station: -4 Laboratory results: Laboratory Tests 06/28/24 06/28/24 06/28/24 01:09 01:23 02:20 WBC 15.22 H RBC 4.10 Hgb 10.60 L Hct 33.0 L MCV 80.5 L MCH 25.9 L MCHC 32.1 RDW 14.0 Plt Count 255 MPV 10.1 Neut % (Auto) 72.3 Lymph % (Auto) 19.7 [place] % (Auto) 5.3 Eos % (Auto) 0.9 Baso % (Auto) 0.3 Neut # (Auto) 11.02 H Lymph # (Auto) 3.0 [place] # (Auto) 0.8 Eos # (Auto) 0.1 Baso # (Auto) 0.0 Nucleated RBC % (a uto) 0 Nucleated RBCs # 0.0 Sodium 133 L Potassium 3.8 Chloride 104 Carbon Dioxide 19 L Anion Gap 13.8 BUN 8 Creatinine 0.5 GFR Calculation 152.9 H Glucose 85 Calculated Osmolal ity 274 L Calcium 9.3 Total Bilirubin 0.2 AST 9 ALT < 5 Alkaline Phosphata se 121 H Total Protein 6.3 L Albumin 3.5 Globulin 2.8 Insulin-like GF I Negative Urine Color Yellow Urine Appearance Clear Urine pH 6.5 Ur Specific Gravit y 1.014 Urine Protein Negative Urine Glucose (UA) Negative Urine Ketones Negative Urine Blood Negative Urine Nitrate Negative Urine Bilirubin Negative Urine Urobilinogen 0.2 Ur Leukocyte Lauren ase Negative Urine RBC 0-4 H Urine WBC 5-10 H Ur Squamous Epith Cells 5-10 H Amorphous Sediment Not Reportable Urine Bacteria Trace Blood Type A Positive Rho(D) Type Rh positive Antibody Screen Negative Vital signs: Vital Signs - 24 hr 06/28/24 01:08 06/28/24 01:09 06/28/24 01:10 Temperature 96.3 F L Pulse Rate 104 H Respiratory Rate Blood Pressure 129/70 Pulse Oximetry Oxygen Delivery Me od Room Air 06/28/24 01:13 06/28/24 01:13 06/28/24 01:41 Temperature Pulse Rate Respiratory Rate 16 16 Blood Pressure 129/72 Pulse Oximetry Oxygen Delivery Me od 06/28/24 01:41 06/28/24 01:56 06/28/24 01:56 Temperature Pulse Rate 93 83 Respiratory Rate Blood Pressure 132/79 Pulse Oximetry Oxygen Delivery Me od 06/28/24 02:02 06/28/24 02:02 06/28/24 02:07 Temperature Pulse Rate 90 Respiratory Rate Blood Pressure Pulse Oximetry 100 100 Oxygen Delivery Me od 06/28/24 02:07 06/28/24 02:11 06/28/24 02:11 Temperature Pulse Rate 90 87 Respiratory Rate Blood Pressure 130/77 [facility] 02:12 06/28/24 02:12 06/28/24 02:17 Temperature Pulse Rate 84 Respiratory Rate Blood Pressure Pulse Oximetry 100 [facility] 02:17 06/28/24 02:22 06/28/24 02:22 Temperature Pulse Rate 94 101 H Respiratory Rate Blood Pressure Pulse Oximetry 100 Oxygen Delivery Me thod 06/28/24 02:26 06/28/24 02:26 06/28/24 02:27 Temperature Pulse Rate 108 H Respiratory Rate Blood Pressure 114/76 Pulse Oximetry 100 Oxygen Delivery Me thod 06/28/24 02:27 06/28/24 02:32 06/28/24 02:32 Temperature Pulse Rate 101 H 94 Respiratory Rate Blood Pressure Pulse Oximetry 100 Oxygen Delivery Me thod 06/28/24 02:37 06/28/24 02:37 06/28/24 02:41 Temperature Pulse Rate 96 Respiratory Rate Blood Pressure 123/79 Pulse Oximetry 99 Oxygen Delivery Me thod 06/28/24 02:41 06/28/24 02:42 06/28/24 02:42 Temperature Pulse Rate 90 95 Respiratory Rate Blood Pressure Pulse Oximetry 100 Oxygen Delivery Me thod 06/28/24 02:47 06/28/24 02:47 06/28/24 02:52 Temperature Pulse Rate 111 H Respiratory Rate Blood Pressure Pulse Oximetry 99 100 Oxygen Delivery Me thod 06/28/24 02:52 06/28/24 02:56 06/28/24 02:56 Temperature Pulse Rate 100 90 Respiratory Rate Blood Pressure 127/76 Pulse Oximetry Oxygen Delivery Me thod 06/28/24 02:57 06/28/24 03:16 06/28/24 03:21 Temperature Pulse Rate Respiratory Rate Blood Pressure 111/55 Pulse Oximetry Oxygen Delivery Me thod Room Air Room Air 06/28/24 03:21 06/28/24 03:26 06/28/24 03:26 Temperature Pulse Rate 105 H 103 H Respiratory Rate Blood Pressure 112/58 Pulse Oximetry Oxygen Delivery Me thod 06/28/24 03:41 06/28/24 03:41 06/28/24 03:56 Temperature Pulse Rate 93 Respiratory Rate Blood Pressure 108/68 109/66 Pulse Oximetry Oxygen Delivery Me thod 06/28/24 03:56 06/28/24 04:11 06/28/24 04:11 Temperature Pulse Rate 98 95 Respiratory Rate Blood Pressure 104/61 Pulse Oximetry Oxygen Delivery Me thod 06/28/24 04:26 06/28/24 04:26 06/28/24 04:41 Temperature Pulse Rate 98 Respiratory Rate Blood Pressure 104/62 99/59 Pulse Oximetry Oxygen Delivery Me thod 06/28/24 04:41 06/28/24 04:56 06/28/24 04:56 Temperature Pulse Rate 90 89 Respiratory Rate Blood Pressure 100/56 Pulse Oximetry Oxygen Delivery Me thod 06/28/24 05:11 06/28/24 05:11 06/28/24 05:21 Temperature Pulse Rate 91 Respiratory Rate Blood Pressure 99/58 Pulse Oximetry Oxygen Delivery Me thod Room Air 06/28/24 05:31 06/28/24 05:42 06/28/24 05:42 Temperature Pulse Rate 102 H Respiratory Rate Blood Pressure 118/53 Pulse Oximetry Oxygen Delivery Me thod Room Air 06/28/24 05:56 06/28/24 05:56 06/28/24 06:11 Temperature Pulse Rate 96 Respiratory Rate Blood Pressure 113/56 110/60 Pulse Oximetry Oxygen Delivery Me thod 06/28/24 06:11 06/28/24 06:26 06/28/24 06:26 Temperature Pulse Rate 98 92 Respiratory Rate Blood Pressure 110/54 Pulse Oximetry Oxygen Delivery Me thod 06/28/24 06:41 06/28/24 06:41 06/28/24 06:56 Temperature Pulse Rate 100 Respiratory Rate Blood Pressure 115/64 104/55 Pulse Oximetry Oxygen Delivery Me thod 06/28/24 06:56 Temperature Pulse Rate 92 Respiratory Rate Blood Pressure Pulse Oximetry Oxygen Delivery Me thod Care CHENTE Calculator Estimated Delivery Date Method Current WG Current Estimate 08/20/24 LMP (Certain) 32w 3d Other Estimates 08/25/24 Ultrasound #1 31w 5d Specific Issues/Plans * PCOS * OBESITY * MARIJUANA USE-- stopped using at confirmation * GESTATIONAL DIABETES -taking metformin 1000mg BID; MFM managing * BIPOLAR DO- EDPS 14 Final Diagnosis Final Diagnosis (1) 32 weeks gestation of : Status: Acute Code(s): Z3A.32 - 32 weeks gestation of (2) uterine contractions in third trimester, antepartum: Status: Acute Code(s): O47.03 - False labor before 37 completed weeks of gestation, third trimester (3) Gestational diabetes: Status: Acute Qualifiers: Gestational diabetes mellitus control: oral hypoglycemic-controlled Trimester: first trimester Qualified Code(s): O24.415 - Gestational diabetes mellitus in , controlled by oral hypoglycemic drugs Code(s): O24.419 - Gestational diabetes mellitus in , unspecified control (4) Social anxiety disorder: Status: Acute Code(s): F40.10 - Social phobia, unspecified (5) Bipolar disorder: Status: Acute Qualifiers: Active/Remission status: currently active Current bipolar episode type: depressed Current episode severity: mild Qualified Code(s): F31.31 - Bipolar disorder, current episode depressed, mild Code(s): F31.9 - Bipolar disorder, unspecified Other Information/Follow up Patient is to follow-up Sunday or Sunday with Dr. Roblero in the clinic. Patient is to return to labor and delivery if spontaneous rupture membranes, vaginal bleeding, decreased movement are pelvic pain returns. Patient is to return to labor and delivery in 12 hours for second dose of betamethasone. Rx for Procardia 10 mg 1 p.o. every 8 hours #5 Coding Level of Care Code Acute Code for Chg Fwd Diagnoses 32 weeks gestation of Z3A.32 uterine contractions in third trimester, antepartum O47.03 Gestational diabetes mellitus (GDM) in first trimester controlled on oral hypoglycemic drug O24.415 Gestational diabetes mellitus control: oral hypoglycemic-controlled Trimester: first trimester Social anxiety disorder F40.10 Bipolar affective disorder, currently depressed, mild F31.31 Active/Remission status: currently active Current bipolar episode type: depressed Current episode severity: mild
== END 2024-06-28 07:43 | disposition home or self-care (01) ==
LOC: OPOB 01:02 → OBGYN 01:03
PROVIDERS: PCP Family Medicine; Visit Provider Obstetrics & Gynecology
DX: O24.415 Gestational diabetes mellitus in pregnancy, controlled by oral hypoglycemic drugs (principal); Z3A.32 32 weeks gestation of pregnancy; O47.03 False labor before 37 completed weeks of gestation, third trimester; F40.10 Social phobia, unspecified; F31.31 Bipolar disorder, current episode depressed, mild
CPT/HCPCS: 36415; 59025; 80053; 81001; 84112; 85025; 86850; 86900; 96372; 99211; J0702; J3105; J7120

== ENCOUNTER 2024-06-28 18:13 | Outpatient (CLI) | payer BC, MEDICAID, SELFPAY ==
[2024-06-28] MEDS: betamethasone susp 6 mg/mL 1 mL (per mL) 12 MG IM (18:38)
== END 2024-06-28 18:40 | disposition home or self-care (01) ==
LOC: OPOB 18:13
PROVIDERS: PCP Family Medicine; Visit Provider Obstetrics & Gynecology
DX: O26.899 Other specified pregnancy related conditions, unspecified trimester (principal); Z3A.00 Weeks of gestation of pregnancy not specified
CPT/HCPCS: 96372; 99211; J0702

== ENCOUNTER 2024-07-01 15:22 | Outpatient (CLI) | payer BC, MEDICAID, SELFPAY ==
[2024-07-01 15:28] VITALS: BMI 47.7
[2024-07-01 15:39] VITALS: BP 141/79; PULSE 83
[2024-07-01 15:54] VITALS: BP 130/75; PULSE 90
[2024-07-01 16:05] VITALS: BP 130/75; PULSE 90; RESP 15
== END 2024-07-01 16:05 | disposition home or self-care (01) ==
LOC: OPOB 15:25 → OBGYN 15:26
PROVIDERS: PCP Family Medicine; Visit Provider Obstetrics & Gynecology
DX: O24.419 Gestational diabetes mellitus in pregnancy, unspecified control (principal); Z3A.00 Weeks of gestation of pregnancy not specified
CPT/HCPCS: 59025; 99211

== ENCOUNTER → 2024-07-03 11:05 | Outpatient (BNVA) | payer BC, MEDICAID, SELFPAY | PROVIDERS: PCP Family Medicine; Visit Provider Obstetrics & Gynecology | DX: O47.03 False labor before 37 completed weeks of gestation, third trimester (principal); Z3A.00 Weeks of gestation of pregnancy not specified | CPT/HCPCS: 76819 ==

== ENCOUNTER 2024-07-08 16:09 | Outpatient (CLI) | payer BC, MEDICAID, SELFPAY ==
[2024-07-08 16:15] VITALS: RESP 18; BMI 45.8
[2024-07-08 16:17] VITALS: BP 121/78; PULSE 114
[2024-07-08 16:37] VITALS: BP 126/72; PULSE 113
[2024-07-08 16:58] VITALS: BP 138/82; PULSE 114
== END 2024-07-08 17:06 | disposition home or self-care (01) ==
LOC: OPOB 16:09 → OBGYN 16:10
PROVIDERS: PCP Family Medicine; Visit Provider Obstetrics & Gynecology
DX: O24.419 Gestational diabetes mellitus in pregnancy, unspecified control (principal); Z3A.00 Weeks of gestation of pregnancy not specified
CPT/HCPCS: 59025

== ENCOUNTER 2024-07-10 16:07 | Outpatient (CLI) | payer BC, MEDICAID, SELFPAY ==
[2024-07-10 16:05] VITALS: BMI 47.1
[2024-07-10 16:15] VITALS: BP 137/80; PULSE 100
[2024-07-10 16:36] VITALS: BP 134/77; PULSE 96
[2024-07-10 16:56] VITALS: BP 132/65; PULSE 98
== END 2024-07-10 17:40 | disposition home or self-care (01) ==
LOC: OPOB 16:07 → OBGYN 16:08
PROVIDERS: PCP Family Medicine; Visit Provider Obstetrics & Gynecology
DX: O24.419 Gestational diabetes mellitus in pregnancy, unspecified control (principal); Z3A.00 Weeks of gestation of pregnancy not specified
CPT/HCPCS: 59025; 99211

== ENCOUNTER → 2024-07-14 12:03 | Outpatient (BNVA) | payer BC, MEDICAID, SELFPAY | PROVIDERS: PCP Family Medicine; Visit Provider Obstetrics & Gynecology | DX: O24.419 Gestational diabetes mellitus in pregnancy, unspecified control (principal) | CPT/HCPCS: 76819 ==

== ENCOUNTER 2024-07-14 14:05 | Outpatient (CLI) | payer BC, MEDICAID, SELFPAY ==
[2024-07-14 14:05] VITALS: BMI 46.9
[2024-07-14 14:29] VITALS: BP 132/78; PULSE 110
[2024-07-14 14:49] VITALS: BP 121/66; PULSE 103
[2024-07-14 14:52] LABS: Bilirubin Urine Negative (Negative); Blood Urine Negative (Negative); Glucose Urine UA Negative (Normal); Ketones Urine Negative (Negative); Leukocyte Esterase Urine Trace (Negative); Nitrate Urine Negative (Negative); Protein Urine Negative (Negative); Specific Gravity, Urine 1.019 (1.005-1.030); Urine Appearance Cloudy (CLEAR); Urine Color Yellow (Yellow)
[2024-07-14 14:57] LABS: Bacteria Urine 2+ /hpf; Hyaline Casts Urine 1.21 /lpf; RBC Urine 0-2 /hpf (0-2); WBC Urine 21-50 /hpf (0-5)
[2024-07-14 15:09] VITALS: BP 104/58; PULSE 107
== END 2024-07-14 15:14 | disposition home or self-care (01) ==
LOC: OPOB 14:07 → OBGYN 14:08
PROVIDERS: PCP Family Medicine; Visit Provider Obstetrics & Gynecology
DX: O26.899 Other specified pregnancy related conditions, unspecified trimester (principal); Z3A.00 Weeks of gestation of pregnancy not specified; M54.50 Low back pain, unspecified
CPT/HCPCS: 59025; 81001; 84315; 99211

== ENCOUNTER 2024-07-17 17:02 | Outpatient (CLI) | payer BC, MEDICAID, SELFPAY ==
[2024-07-17 17:00] VITALS: BMI 40.1
[2024-07-17 17:06] VITALS: BP 136/67; PULSE 116
[2024-07-17 17:21] VITALS: BP 138/69; PULSE 101
== END 2024-07-17 17:40 ==
LOC: OPOB 17:03 → OBGYN 17:03
PROVIDERS: PCP Family Medicine; Visit Provider Obstetrics & Gynecology
DX: O24.419 Gestational diabetes mellitus in pregnancy, unspecified control (principal); Z3A.00 Weeks of gestation of pregnancy not specified
CPT/HCPCS: 59025; 99211

== ENCOUNTER 2024-07-22 15:35 | Outpatient (CLI) | payer BC, MEDICAID, SELFPAY ==
[2024-07-22 15:45] VITALS: BMI 49.0
[2024-07-22 15:51] VITALS: BP 118/75; PULSE 100
[2024-07-22 16:11] VITALS: BP 131/77; PULSE 106
[2024-07-22 16:31] VITALS: BP 115/60; PULSE 96
[2024-07-22 16:35] VITALS: BP 115/60; PULSE 96; RESP 16; TEMP 36.8; O2SAT 99
== END 2024-07-22 16:35 | disposition home or self-care (01) ==
LOC: OPOB 15:42 → OBGYN 15:44
PROVIDERS: PCP Family Medicine; Visit Provider Obstetrics & Gynecology
DX: O24.419 Gestational diabetes mellitus in pregnancy, unspecified control (principal); Z3A.00 Weeks of gestation of pregnancy not specified
CPT/HCPCS: 59025; 99211

== ENCOUNTER → 2024-07-24 13:02 | Outpatient (BNVA) | payer BC, MEDICAID, SELFPAY | PROVIDERS: PCP Family Medicine; Visit Provider Nurse Practitioner Women's Health | DX: O24.415 Gestational diabetes mellitus in pregnancy, controlled by oral hypoglycemic drugs (principal); O47.03 False labor before 37 completed weeks of gestation, third trimester | CPT/HCPCS: 76815; 76819; 76820 ==

== ENCOUNTER 2024-07-24 16:47 | Outpatient (CLI) | payer BC, MEDICAID, SELFPAY ==
[2024-07-24 16:47] VITALS: RESP 17; BMI 49.0
[2024-07-24 16:54] VITALS: BP 119/76; PULSE 107
[2024-07-24 17:08] VITALS: BP 118/76; PULSE 98
[2024-07-24 17:24] VITALS: BP 101/59; PULSE 89
[2024-07-24 17:38] VITALS: BP 101/62; PULSE 93
[2024-07-24 17:53] VITALS: BP 102/60; PULSE 90
== END 2024-07-24 17:57 | disposition home or self-care (01) ==
LOC: OPOB 16:48 → OBGYN 16:49
PROVIDERS: PCP Physician Assistant; Visit Provider Obstetrics & Gynecology
DX: O24.419 Gestational diabetes mellitus in pregnancy, unspecified control (principal); Z3A.00 Weeks of gestation of pregnancy not specified
CPT/HCPCS: 59025; 84315; 87081; 87086

== ENCOUNTER → 2024-07-31 10:31 | Outpatient (BNVA) | payer BC, MEDICAID, SELFPAY | PROVIDERS: PCP Physician Assistant; Visit Provider Obstetrics & Gynecology | DX: Z34.80 Encounter for supervision of other normal pregnancy, unspecified trimester (principal) | CPT/HCPCS: 76819; 76820 ==

== ENCOUNTER 2024-07-31 13:00 | Outpatient (CLI) | payer BC, MEDICAID, SELFPAY ==
[2024-07-31 13:08] VITALS: BP 127/67; PULSE 101; BMI 50.3
[2024-07-31 13:23] VITALS: BP 139/77; PULSE 93
[2024-07-31 13:36] VITALS: BP 139/77; PULSE 93; RESP 15
== END 2024-07-31 13:38 ==
LOC: OPOB 13:03 → OBGYN 13:03
PROVIDERS: PCP Physician Assistant; Visit Provider Obstetrics & Gynecology
DX: O24.419 Gestational diabetes mellitus in pregnancy, unspecified control (principal); Z3A.00 Weeks of gestation of pregnancy not specified
CPT/HCPCS: 59025; 84315

== ENCOUNTER 2024-08-07 08:29 | Inpatient (IN) | payer BC, MEDICAID, SELFPAY ==
[2024-08-06] VITALS (7 sets, daily range): BP systolic 112–127; BP diastolic 58–77; PULSE 76–103; TEMP 35.9–36.7; BMI 47.9
[2024-08-06 18:03] LABS: Glucose Point of Care 126 mg/dL (70-110)
[2024-08-06] MEDS: miSOPROStol 100 mcg tablet 25 MCG VAGINAL ×2 (18:03→22:30)
[2024-08-06 18:12] LABS: Basophils % 0.2 %; Eosinophils % 0.3 %; Hematocrit 34.3 % (36-47); Lymphocytes # 2.5 10^3/uL (0.8-4.8); Lymphocytes % 15.6 %; Mean Corpuscular HGB Conc 32.1 g/dL (30-55); Mean Corpuscular Hemoglobin 25.1 pg (27-33); Mean Corpuscular Volume 78.1 fl (85-98); Mean Platelet Volume 10.7 fL (7.4-10.4); Monocytes # 0.7 10^3/uL (0.2-0.9); Monocytes % 4.1 %; Neutrophils # 12.61 10^3/uL (1.8-7.7); Neutrophils % 78.8 %; Nucleated Red Blood Cells % 0 %; Platelet Count 279 10^3/cmm (157-399); Red Blood Count 4.39 10^6/uL (3.85-5.65); Red Cell Distribution Width 14.4 % (12.1-15.1); White Blood Count 15.99 10^3/uL (3.29-11.43)
[2024-08-06 18:52] LABS: Amphetamines Screen Urine Negative (Negative); Barbiturates Screen Urine Negative (Negative); Benzodiazepines Screen Urine Negative (Negative); Cocaine Screen Urine Negative (Negative); Opiate Screen Urine Negative (Negative); PCP Screen Urine Negative (Negative); THC Screen Urine Negative (Negative)
[2024-08-06 22:03] LABS: Glucose Point of Care 79 mg/dL (70-110)
[2024-08-07] VITALS (8 sets, daily range): BP systolic 99–135; BP diastolic 49–85; PULSE 72–100; TEMP 36.6
[2024-08-07 02:03] LABS: Glucose Point of Care 115 mg/dL (70-110)
[2024-08-07] MEDS: sodium chloride 0.9% 1,000 ML 999 ML IV ×2 (03:15→15:26)
[2024-08-07] MEDS: miSOPROStol 100 mcg tablet 25 MCG VAGINAL (05:22)
[2024-08-07 07:43] LABS: Glucose Point of Care 67 mg/dL (70-110)
[2024-08-07] MEDS: hyDROXYzine 25 mg Capsule 50 MG PO ×2 (08:36→14:13)
[2024-08-07] MEDS: oxytocin 30 UNIT/500 ML BAG IV (09:40)
[2024-08-07 12:48] LABS: Glucose Point of Care 69 mg/dL (70-110)
--- NOTE | 2024-08-07 15:02 | P.ANESASSM_ITS ---
Pre-Anesthetic Assessment Height/Weight: Height 1.6 m Weight 122.924 kg Temp Pulse BP O2 Del Method 97.9 F 81 129/77 Room Air 08/07/24 02:30 08/07/24 14:11 08/07/24 14:11 08/06/24 17:05 Epidural Familial anesthetic complications: None Was Beta Prudence taken within 24 hours: N/A Was Clonidine taken within 24 hours: N/A Last intake: 08/07 solids Social No alcohol and No tobacco (Marijuana before ) Exam alert, oriented x 3, clear to auscultation bilaterally and regular rate & rhythm Airway Submandibular: within normal limits Cervical ROM: within normal limits Mallampati: Class III Dentition: full History/ROS No significant history except as noted and No significant complaints Pulmonary None reported CV/HEM Anemia None reported Hepatic Fatty liver GI Gastroesophageal Reflux Disease (Controlled with meds) Metabolic Diabetes Mellitus (Gestational) and Morbid Obesity Musc/skel Lower Back Pain Neuropsych Anxiety, Depression and Headache Anesthetic Plan ASA status: 3 Anesthesia: Anesthesia Evaluation, General and Regional (specify below) (Epidural) Risk of > 500 ml blood loss (7ml/kg in children): Yes, adequate IV access and fluids planned Medications/Allergies Home Medications Medication Instructions Recorded Confirmed Last Taken Type metformin 1,000 mg tablet,extended 1,000 mg PO BID 11/05/19 08/04/24 07/14/24 04:00 History release 24hr (osmotic) docosahexaenoic acid 200 mg 200 mg PO DAILY 01/09/24 08/04/24 07/14/24 04:00 History capsule ( DHA) alcohol swabs 1 pad topical DIRECTED #200 marcia 03/10/24 08/04/24 06/27/24 Rx blood sugar diagnostic (Blood #200 marcia 03/10/24 08/04/24 Unknown Rx Glucose Test strips) blood-glucose meter #1 marcia 03/10/24 08/04/24 Unknown Rx insulin glargine 100 unit/mL (3 20 unit SUBCUT DAILY 06/12/24 08/04/24 07/14/24 04:00 History mL) subcutaneous pen (Lantus Solostar U-100 Insulin) omeprazole 10 mg capsule,delayed 20 mg PO DAILY 07/14/24 08/04/24 07/14/24 04:00 History release amitriptyline 25 mg tablet 25 mg PO DAILY 07/24/24 08/04/24 Unknown History promethazine 25 mg tablet See Rx Instructions .Route 07/25/24 08/04/24 Unknown Rx .COMPLEX #30 tabs sertraline 25 mg tablet See Rx Instructions .Route 07/28/24 08/04/24 Unknown Rx .COMPLEX #30 tabs Allergies Allergy/AdvReac Type Severity Reaction Status Date / Time No Known Allergies Allergy Verified 08/04/24 09:20 Current Medications Generic Name Dose Route Start Last Admin Trade Name Freq PRN Reason Stop Dose Admin Hydroxyzine Pamoate 50 mg 08/06/24 17:06 08/07/24 14:13 Hydroxyzine 25 Mg Capsule PO 50 mg QID PRN Administration sleep, agitation or itching Sodium Chloride 1,000 mls @ 999 mls/hr 08/06/24 17:06 08/07/24 09:40 Sodium Chloride 0.9% IV 75 mls/hr .Q1H1M PRN Infusion Per L&D Rescitation Protocol Oxytocin 30 unit in 500 mls @ 1 mls/hr 08/07/24 09:30 08/07/24 11:10 Pitocin IV 5 milliunit/min .Q24H CHRIS 5 mls/hr Titration Protocol 1 MILLIUNIT/MIN Insulin Human Lispro 0 unit 08/06/24 18:00 08/07/24 09:13 Insulin Lispro 100 Unit/1 Ml SUBCUT Not Given Q4H CHRIS Protocol PFSH Anesthesia Medical History No pertinent past medical history neghx: htn,dm,thyroid,dvt/pe PCP: Nichole Diaz Dysmenorrhea Polycystic ovaries Social anxiety disorder Bipolar disorder Surgical History No pertinent past surgical history Family History Grandmother Ovarian cancer maternal Diabetes maternal Mother Hypertension Stroke Father Hypertension Denies family history of CAD (coronary artery disease) Clotting disorder Hyperlipidemia Chronic kidney disease (CKD) Bleeding disorder Thyroid disease Social History Smoking and tobacco/nicotine status: never used tobacco/nicotine Alcohol intake: never Female Reproductive History : 2 Data Anesthesia 08/06/24 17:45 Short CBC 08/06/24 Range/Units 17:45 WBC 15.99 H (3.29-11.43) 10^3/uL Hgb 11.00 L (11.27-16.99) g/dL Hct 34.3 L (36-47) % MCV 78.1 L (85-98) fl Plt Count 279 (157-399) 10^3/cmm Neut % (Auto) 78.8 % Neut # (Auto) 12.61 H (1.8-7.7) 10^3/uL Blood Bank 08/06/24 17:45 Blood Type A Positive Rho(D) Type Rh positive Antibody Screen Negative Cardiac Studies: 2 No Data to Display
[2024-08-07 17:12] LABS: Glucose Point of Care 73 mg/dL (70-110)
[2024-08-08] VITALS (92 sets, daily range): BP systolic 95–163; BP diastolic 51–92; PULSE 68–116; TEMP 35.9–36.2; O2SAT 88–100
[2024-08-08 08:12] LABS: Glucose Point of Care 73 mg/dL (70-110)
[2024-08-08 08:12] LABS: Glucose Point of Care 131 mg/dL (70-110)
[2024-08-08] MEDS: oxytocin 30 UNIT/500 ML BAG IV (09:55)
[2024-08-08] MEDS: sodium chloride 0.9% 1,000 ML 125 ML IV (13:17)
[2024-08-08 16:01] LABS: Glucose Point of Care 77 mg/dL (70-110)
[2024-08-08] MEDS: lactated ringers 1,000 ML 999 ML (18:35)
[2024-08-08] MEDS: lactated ringers 1,000 ML 999 ML IV (19:39)
[2024-08-08] MEDS: ROPivacaine syringe 100 MG/50 ML SYRINGE 10 MG EPIDURAL (20:11)
--- NOTE | 2024-08-08 20:14 | P.ANES_ITS ---
Anesthesia Procedures Procedure/Date: 08/08/24
--- NOTE | 2024-08-08 20:14 | P.ANESUD_ITS ---
Pre-Anesthetic Update Pre-Anesthetic Assessment: Date of Surgery/Procedure: 08/08/24 Preop Gosia gnosis: IUP Proposed Procedure: labor epidural Any changes to Pre-Anesthetic Assessment?: No Labs Last 48hrs: Blood Bank 08/06/24 17:45 Blood Type A Positive Rho(D) Type Rh positive Antibody Screen Negative Vitals: Temperature 96.8 F L 08/08/24 04:37 Temperature Source Oral 08/07/24 02:30 Pulse Rate 93 08/08/24 20:10 Respiratory Effort Spontaneous, Non- Labored, Easy 08/06/24 17:05 Respiratory Depth Normal 08/06/24 17:05 Respiratory Patter n Normal 08/06/24 17:05 Blood Pressure 142/89 08/08/24 20:10 Pulse Oximetry 100 08/08/24 20:09 Oxygen Delivery Me thod Room Air 08/06/24 17:05 Exam: Pre-Anes Outpt Exam: alert, oriented x 3 and clear to auscultation bilaterally Cardiac Studies: No Data to Display Anesthesia Procedures Epidural: Time Out Performed: Yes Consents Signed: Procedure Consent Consent: requested by attending/covering physician, from patient, risks and benefits reviewed and patient agrees to proceed Lumbar Level: L3-L4 Epidural position: sitting Epidural procedure: sterile prep of area, 1% lidocaine to numb the area, 18 g needle, negative for paresthesia passed, neg for paresthesia, test dose given, 1.5% xylocaine 1:200k epi, 0.2% Ropivacaine bolus ml (5), placed PCEA, no systemic response, sterile dressing applied, L.U.D. no apparent complications and 0.2% Ropiavacaine @ mls/hr Additional Comments: 1st attempt L4-L5, catheter easily threa ded, questionable CSF aspirated prior to test dose, catheter removed. 2nd attempt at L3-L4, ACE 9 cm catheter easily threaded to 5cm in the space. VS monitored throughout and remained stable. 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
--- NOTE | 2024-08-08 20:14 | ANES.PROC ---
Anesthesia Procedures Procedure/Date: 08/08/24
--- NOTE | 2024-08-08 21:40 | P.PN_ITS ---
PERSONNEL GENERALIST MANAGER Subjective 2 Subjective: Interval history: patient comfortable with epidural cervix: 3 cm / 75% / -2 / posterior AROM, clear fluid IUPC, FSE placed Labor: Station: -1 Amniotic Membrane Status: Intact Monitor Mode: Internal (IUPC) Contraction Pattern: Regular Uterine Tone Measurement: 10 Vitals/I&O/Wt Last Vital Signs Temp 97.5 F L 08/09/24 06:25 Pulse 108 H 08/09/24 12:42 BP 120/66 08/09/24 12:42 Pulse Ox 99 08/09/24 10:06 O2 Del Method Room Air 08/06/24 17:05 08/08/24 08/09/24 08/09/24 22:59 06:59 14:59 Intake Total 75.716 / 96.966 129.416 / 226.382 60.333 / 60.333 Output Total 800 / 800 600 / 600 Balance 75.716 / 96.966 -670.584 / -573.618 -539.667 / -539.667 Physical Exam 2 Urinary Catheter Management: Villeda: Cath Placed During This Visit: yes, but has since been removed by the nurse Reason for Continuing Indwelling Catheter: Decision to DC Catheter Urinary Catheter Date of Insertion: 08/08/24 Urinary Catheter Time of Insertion: 20:45 Date Urinary Catheter Removed: 08/09/24 Time Urinary Catheter Discontinued: 08:50 Data 08/06/24 17:45 Attestations 2 Medical Necessity Statement*: patient at 38 w 2 d; with gestational diabetes on insulin, admitted for induction of labor Coding Level of Care Code Acute Code for Chg Fwd Time Spent (min) 30
[2024-08-08 22:50] LABS: Glucose Point of Care 74 mg/dL (70-110)
--- NOTE | 2024-08-08 23:05 | P.PN_ITS ---
SELF PROPELLED HOT MIX ROLLER OPERATOR Subjective 2 Subjective: Interval history: Fetus reassuring with FSE UCs inadequate with IUPC Comfortable with epidural Continue Pitocin Labor: Station: -1 Amniotic Membrane Status: Intact Monitor Mode: Internal (IUPC) Contraction Pattern: Regular Uterine Tone Measurement: 10 Vitals/I&O/Wt Last Vital Signs Temp 97.5 F L 08/09/24 06:25 Pulse 108 H 08/09/24 12:42 BP 120/66 08/09/24 12:42 Pulse Ox 99 08/09/24 10:06 O2 Del Method Room Air 08/06/24 17:05 08/09/24 08/09/24 08/09/24 06:59 14:59 22:59 Intake Total 129.416 / 226.382 60.333 / 60.333 Output Total 800 / 800 600 / 600 Balance -670.584 / -573.618 -539.667 / -539.667 Physical Exam 2 Urinary Catheter Management: Villeda: Cath Placed During This Visit: yes, but has since been removed by the nurse Reason for Continuing Indwelling Catheter: Decision to DC Catheter Urinary Catheter Date of Insertion: 08/08/24 Urinary Catheter Time of Insertion: 20:45 Date Urinary Catheter Removed: 08/09/24 Time Urinary Catheter Discontinued: 08:50 Data 08/06/24 17:45 A&P Assessment and plan (1) Encounter for induction of labor: Attestations 2 Medical Necessity Statement*: patient at 38 w 2 d; with gestational diabetes on insulin, admitted for induction of labor Coding Level of Care Code Acute Code for Chg Fwd Diagnoses Encounter for induction of labor Z34.90 Time Spent (min) 30
[2024-08-09] VITALS (181 sets, daily range): BP systolic 104–170; BP diastolic 55–90; PULSE 79–174; RESP 15–17; TEMP 36.2–36.9; O2SAT 88–100
[2024-08-09] MEDS: ROPivacaine syringe 100 MG/50 ML SYRINGE 10 MG EPIDURAL ×2 (01:11→05:41)
--- NOTE | 2024-08-09 04:35 | P.PN_ITS ---
CORRIDOR REDEVELOPMENT MANAGER Subjective 2 Subjective: Interval history: Fetus reassuring, with FSE Cervix: 6 / -2 Continue pitocin Labor: Station: -1 Amniotic Membrane Status: Intact Monitor Mode: Internal (IUPC) Contraction Pattern: Regular Uterine Tone Measurement: 10 Vitals/I&O/Wt Last Vital Signs Temp 97.5 F L 08/09/24 06:25 Pulse 108 H 08/09/24 12:42 BP 120/66 08/09/24 12:42 Pulse Ox 99 08/09/24 10:06 O2 Del Method Room Air 08/06/24 17:05 08/09/24 08/09/24 08/09/24 06:59 14:59 22:59 Intake Total 129.416 / 226.382 60.333 / 60.333 Output Total 800 / 800 600 / 600 Balance -670.584 / -573.618 -539.667 / -539.667 Physical Exam 2 Urinary Catheter Management: Villeda: Cath Placed During This Visit: yes, but has since been removed by the nurse Reason for Continuing Indwelling Catheter: Decision to DC Catheter Urinary Catheter Date of Insertion: 08/08/24 Urinary Catheter Time of Insertion: 20:45 Date Urinary Catheter Removed: 08/09/24 Time Urinary Catheter Discontinued: 08:50 Data 08/06/24 17:45 A&P Assessment and plan (1) Encounter for induction of labor: Attestations 2 Medical Necessity Statement*: patient at 38 w 2 d; with gestational diabetes on insulin, admitted for induction of labor Coding Level of Care Code Acute Code for Chg Fwd Diagnoses Encounter for induction of labor Z34.90 Time Spent (min) 30
[2024-08-09 06:29] LABS: Glucose Point of Care 74 mg/dL (70-110)
--- NOTE | 2024-08-09 10:05 | PM.DELIVERY ---
Delivery Note: Date of delivery: August 09, 2024 Pre-delivery diagnoses: 38 w 2 d gestational diabetes, on insulin admitted for induction of labor Post-delivery diagnoses: 38 w 2 d gestational diabetes, on insulin admitted for induction of labor vaginal delivery repair of second-degree perineal laceration Procedure: induction of labor vaginal delivery repair of second-degree perineal laceration Op report anesthesia: Epidural Delivering Physician: Obdulio Nelson MD Estimated blood loss (mL): 300 Findings: , vigorous male Cord gases and blood obtained Normal placenta and cord No episiotomy Second-degree perineal laceration repaired EBL: 300 cc No complications Post Delivery Diagnoses: Gestational diabetes: Qualifiers: Gestational diabetes mellitus control: oral hypoglycemic-controlled Trimester: first trimester Qualified Code(s): O24.415 - Gestational diabetes mellitus in , controlled by oral hypoglycemic drugs Pre-Delivery Course: normal labor course fetus reassuring throughout Delivery: vaginal Post-Delivery Status: good History History History 2 Term 0 0 Miscarriages/Ectopic 1 Living Children 0 A&P Assessment and plan (1) Supervision of other normal : (2) Gestational diabetes: Qualifiers: Gestational diabetes mellitus control: oral hypoglycemic-controlled Trimester: first trimester Qualified Code(s): O24.415 - Gestational diabetes mellitus in , controlled by oral hypoglycemic drugs (3) Encounter for induction of labor: Coding Level of Care Code Acute Code for Chg Fwd Diagnoses Supervision of other normal Z34.80 Gestational diabetes mellitus (GDM) in first trimester controlled on oral hypoglycemic drug O24.415 Gestational diabetes mellitus control: oral hypoglycemic-controlled Trimester: first trimester Encounter for induction of labor Z34.90 Time Spent (min) 120
[2024-08-09] MEDS: lactated ringers 1,000 ML 125 ML IV (10:12)
[2024-08-09] MEDS: oxytocin 30 UNIT/500 ML BAG 60 UNIT IV (11:08)
[2024-08-09] MEDS: benzocaine-menthol 78 gm Canister 1 SPRAY TOPICAL (12:49)
[2024-08-09] MEDS: ibuprofen 800 mg tablet PO ×2 (15:27→20:10)
--- NOTE | 2024-08-09 16:00 | ANE.PACU2 ---
Inpatient post-anesthesia follow up: Airway intact: Yes Vital signs: Temperature 98 F Pulse Rate 102 Respiratory Rate 16 Blood Pressure 116/82 Pulse Oximetry 98 Oxygen Delivery Me thod Room Air Oxygen Flow Rate Fraction of Inspir ed Oxygen Hydration adequate: Yes Nausea and vomiting: No Pain level: 1 Mental status: Baseline Epidural Start/End: Epidural Start Date: 08/08/24 Epidural Start Time: 20:00 Epidural End Date: 08/09/24 Epidural End Time: 12:34
[2024-08-09] MEDS: docusate sodium 100 mg Capsule PO (20:10)
[2024-08-09 22:32] LABS: Mean Corpuscular HGB Conc 32.2 g/dL (30-55); Mean Corpuscular Hemoglobin 25.6 pg (27-33); Mean Corpuscular Volume 79.4 fl (85-98); Mean Platelet Volume 10.4 fL (7.4-10.4); Platelet Count 259 10^3/cmm (157-399); Red Blood Count 4.03 10^6/uL (3.85-5.65); Red Cell Distribution Width 14.5 % (12.1-15.1)
[2024-08-10 04:18] VITALS: BP 132/86; PULSE 92; RESP 16; TEMP 36.8; O2SAT 98
[2024-08-10] MEDS: HYDROcodone-acetaminophen 5-325 mg Tablet PO ×2 (04:18→14:01)
[2024-08-10] MEDS: PRENATAL VIT NO.130/IRON/FOLIC 1 EACH TABLET PO (08:51)
[2024-08-10] MEDS: docusate sodium 100 mg Capsule PO (08:51)
[2024-08-10] MEDS: ibuprofen 800 mg tablet PO (08:51)
[2024-08-10 08:52] VITALS: BP 123/84; PULSE 102; RESP 16; TEMP 36.6; TEMP 36.7; O2SAT 98
--- NOTE | 2024-08-10 12:15 | P.PN_ITS ---
COMPLAINT ANALYST Subjective 2 Subjective: Interval history: no c/o no bleeding, pain eating, voiding, ambulating well caring for without any problems Labor: Station: -1 Amniotic Membrane Status: Intact Monitor Mode: Internal (IUPC) Contraction Pattern: Regular Uterine Tone Measurement: 10 Vitals/I&O/Wt Last Vital Signs Temp 98.0 F 08/10/24 08:52 Pulse 102 H 08/10/24 08:52 Resp 16 08/10/24 08:52 BP 123/84 08/10/24 08:52 Pulse Ox 98 08/10/24 08:52 O2 Del Method Room Air 08/10/24 08:52 Physical Exam 2 Narrative: afebrile, VS normal comfortable, awake, alert Abd: soft, nontender. fundus firm Ext: no edema; nontender Urinary Catheter Management: Villeda: Cath Placed During This Visit: yes, but has since been removed by the nurse Reason for Continuing Indwelling Catheter: Decision to DC Catheter Urinary Catheter Date of Insertion: 08/08/24 Urinary Catheter Time of Insertion: 20:45 Date Urinary Catheter Removed: 08/09/24 Time Urinary Catheter Discontinued: 08:50 Data 08/09/24 22:19 A&P Assessment and plan (1) Vaginal delivery: PPD #1 doing well discharge to home today instructions and precautions given call/return if fever, chills, headache, blurry vision, nausea, vomiting, abdominal pain; vaginal bleeding or discharge; shortness of breath, chest pain, leg pains or swelling; inability to void, perineal pain or swelling; feelings of depression or mood changes; thoughts of suicide or harming others; inability to care for baby. f/u in 6 weeks or PRN Attestations 2 Medical Necessity Statement*: patient s/p vaginal delivery, plan to discharge to home today Coding Level of Care Code Acute Code for Chg Fwd Diagnoses Vaginal delivery O80 Time Spent (min) 20
--- NOTE | 2024-08-10 12:17 | PM.OBGYDC ---
Discharge Providers GYMNASIUM TEACHER Date of Admission: 08/08/24 08:20 Date of Discharge: 08/10/24 Attending Provider at Admission: Larry Roblero MD Attending Provider at Discharge: Obdulio Nelson MD Consults: none Primary GYMNASIUM TEACHER: Larry Roblero MD Primary Care Provider: Nichole Diaz Diagnoses at Discharge Discharge Diagnosis (1) Vaginal delivery: Details from hospital stay: 24 y.o. A1 [facility] August 20, 2024 at 38 w 2 d complicated by gestational diabetes, on metformin and insulin admitted for induction of labor patient progressed to complete dilatation fetus was reassuring throughout patient had vaginal delivery with repair of second-degree perineal laceration She did well and was discharged to home on the first day Status: Acute Reason for Visit Reason for Visit: IOL Brief History: 24 y.o. A1 [facility] August 20, 2024 at 38 w 2 d complicated by gestational diabetes, on metformin and insulin admitted for induction of labor Hospital Course Hospital Course 24 y.o. A1 [facility] August 20, 2024 at 38 w 2 d complicated by gestational diabetes, on metformin and insulin admitted for induction of labor patient progressed to complete dilatation fetus was reassuring throughout patient had vaginal delivery with repair of second-degree perineal laceration She did well and was discharged to home on the first day Information Peripartum Data: Delivery Method: Vaginal Laceration description: Perineal - 2nd Degree Episiotomy description: None complications: none Physical Exam Narrative: afebrile, VS normal comfortable, awake, alert Abd: soft, nontender. fundus firm Ext: no edema; nontender Urinary Catheter Management: Villeda: Cath Placed During This Visit: yes, but has since been removed by the nurse Reason for Continuing Indwelling Catheter: Decision to DC Catheter Urinary Catheter Date of Insertion: 08/08/24 Urinary Catheter Time of Insertion: 20:45 Date Urinary Catheter Removed: 08/09/24 Time Urinary Catheter Discontinued: 08:50 History History History 2 Term 0 0 Miscarriages/Ectopic 1 Living Children 0 Discharge Data Studies Completed and Pending Laboratory Results WBC 29.00 10^3/uL (3.29-11.43) H 08/09/24 22:19 RBC 4.03 10^6/uL (3.85-5.65) 08/09/24 22:19 Hgb 10.30 g/dL (11.27-16.99) L 08/09/24 22:19 Hct 32.0 % (36-47) L 08/09/24 22:19 MCV 79.4 fl (85-98) L 08/09/24 22:19 MCH 25.6 pg (27-33) L 08/09/24 22:19 MCHC 32.2 g/dL (30-55) 08/09/24 22:19 RDW 14.5 % (12.1-15.1) 08/09/24 22:19 Plt Count 259 10^3/cmm (157-399) 08/09/24 22:19 MPV 10.4 fL (7.4-10.4) 08/09/24 22:19 Neut % (Auto) 78.8 % 08/06/24 17:45 Lymph % (Auto) 15.6 % 08/06/24 17:45 [place] % (Auto) 4.1 % 08/06/24 17:45 Eos % (Auto) 0.3 % 08/06/24 17:45 Baso % (Auto) 0.2 % 08/06/24 17:45 Neut # (Auto) 12.61 10^3/uL (1.8-7.7) H 08/06/24 17:45 Lymph # (Auto) 2.5 10^3/uL (0.8-4.8) 08/06/24 17:45 [place] # (Auto) 0.7 10^3/uL (0.2-0.9) 08/06/24 17:45 Eos # (Auto) 0.0 10^3/uL (0.0-0.8) 08/06/24 17:45 Baso # (Auto) 0.0 10^3/uL (0.0-0.1) 08/06/24 17:45 Nucleated RBC % (auto) 0 % 08/06/24 17:45 Nucleated RBCs # 0.0 /100WBC 08/06/24 17:45 POC Glucose 74 mg/dL (70-110) 08/09/24 05:40 Urine Opiates Screen Negative ng/mL (Negative) 08/06/24 17:00 Ur Barbiturates Screen Negative ng/mL (Negative) 08/06/24 17:00 Ur Phencyclidine Scrn Negative ng/mL (Negative) 08/06/24 17:00 Ur Amphetamines Screen Negative ng/mL (Negative) 08/06/24 17:00 U Benzodiazepines Scrn Negative ng/mL (Negative) 08/06/24 17:00 Urine Cocaine Screen Negative ng/mL (Negative) 08/06/24 17:00 U Marijuana (THC) Screen Negative ng/mL (Negative) 08/06/24 17:00 Blood Type A Positive 08/06/24 17:45 Rho(D) Type Rh positive 08/06/24 17:45 Antibody Screen Negative 08/06/24 17:45 Procedures Performed induction of labor vaginal delivery repair of second-degree perineal laceration Vitals Last Vital Signs Temp 98.0 F 08/10/24 08:52 Pulse 102 H 08/10/24 08:52 Resp 16 08/10/24 08:52 BP 123/84 08/10/24 08:52 Pulse Ox 98 08/10/24 08:52 O2 Del Method Room Air 08/10/24 08:52 Results Labs OB ([facility]): Obstetrics US 07/31/24 Obstetrics US/Biophysical Profile 07/24/24 Blood Type A Positive 08/06/24 Antibody Screen Negative 08/06/24 Hct 32.0 % (36-47) L 08/09/24 Hgb 10.30 g/dL (11.27-16.99) L 08/09/24 Rho(D) Type Rh positive 08/06/24 Plt Count 259 10^3/cmm (157-399) 08/09/24 Hep Bs Antigen Non-reactive (Nonreactive) 01/30/24 Hepatitis C Antibody Non-reactive (Nonreactive) 01/30/24 Rubella IgG Antibody 83.5 IU/mL (0.0-10.0) H 01/30/24 RPR Nonreactive (Nonreactive) 01/30/24 HIV 1&2 Ab & HIV 1 Ag Non-reactive (Non-Reactiv) 01/30/24 C.trachomatis RNA (TMA) Not detected (NOT DETECTED) 03/20/24 N.gonorrhoeae RNA (TMA) Not detected (NOT DETECTED) 03/20/24 T. vaginalis Amp RNA Not detected (NOT DETECTED) 03/20/24 Chlamydia/GC Comment See note 03/20/24 Cystic Fibrosis Screen Negative 02/14/24 Glucose 1 Hr 50 gm 152 mg/dL (85-140) H 01/30/24 Gest Glucose Tolerance mg/dL 02/14/24 Hemoglobin A1c 5.2 % (4.0-6.0) 01/09/24 Ser , Semi-Qnt 42072.00 mIU/mL 01/09/24 HCG, Qual Positive (Negative) H 01/09/24 Urine Opiates Screen Negative ng/mL (Negative) 08/06/24 Ur Barbiturates Screen Negative ng/mL (Negative) 08/06/24 Ur Phencyclidine Scrn Negative ng/mL (Negative) 08/06/24 Ur Amphetamines Screen Negative ng/mL (Negative) 08/06/24 U Benzodiazepines Scrn Negative ng/mL (Negative) 08/06/24 Urine Cocaine Screen Negative ng/mL (Negative) 08/06/24 U Marijuana (THC) Screen Negative ng/mL (Negative) 08/06/24 Micro Urine Specimen 07/24/24 Discharge Plan Discharge Patient Disposition: Home Condition: Stable Prescriptions: New oxycodone-acetaminophen [Percocet] 5-325 mg tablet 1 tab PO BID PRN (Reason: pain) Qty: 14 0RF Continued DHA 200 mg capsule 200 mg PO DAILY omeprazole 10 mg capsule,delayed release(DR/EC) 20 mg PO DAILY amitriptyline 25 mg tablet 25 mg PO DAILY sertraline 25 mg tablet See Rx Instructions .ROUTE .COMPLEX Qty: 30 0RF Dose Instruction: Take 1 tablet by mouth once daily Rx Instructions: Take 1 tablet by mouth once daily Discontinued metformin 1,000 mg tablet extended release 24hr 1,000 mg PO BID alcohol swabs Pads, Medicated 1 pad topical DIRECTED Qty: 200 12RF Rx Instructions: Use as directed to clean skin prior to finger stick or medication injection insulin glargine [Lantus Solostar U-100 Insulin] 100 unit/mL (3 mL) insulin pen 20 unit SUBCUT DAILY Patient Comments: 20 units in the morning 25 units in the evening promethazine 25 mg tablet See Rx Instructions .ROUTE .COMPLEX Qty: 30 0RF Dose Instruction: TAKE 1 TABLET BY MOUTH THREE TIMES DAILY NEEDED FOR MIGRAINE HEADACHE Rx Instructions: TAKE 1 TABLET BY MOUTH THREE TIMES DAILY NEEDED FOR MIGRAINE HEADACHE No Action (DME) blood-glucose meter Misc See Rx Instructions .MEDSUPPLY Qty: 1 0RF Rx Instructions: Use as directed for checking blood sugar (DME) Blood Glucose Test Strip See Rx Instructions .MEDSUPPLY Qty: 200 12RF Rx Instructions: Use as directed with glucometer to check blood sugar Discharge Orders: Discharge Order (Routine); Ordered 08/10/24 Ordered By: Obdulio Nelson Discharge Diet: Usual diet Discharge Activity: Increase activity as tolerated Patient Instructions: Depression (DC), Opioid Safety (DC), Preeclampsia and Eclampsia After Delivery (GEN), Hemorrhage (DC), OB Discharge Report, OB Food/Drug Interaction Guide, Opioid Safety, OB Home Care, OB Vaginal Deliveries - [facility], Abnormal Bleeding Discharge Attestations GYMNASIUM TEACHER Time Spent in Discharge Care*: less than 30 min Coding Level of Care Code Acute Code for Chg Fwd Diagnoses Vaginal delivery O80 Time Spent (min) 20
[2024-08-10 15:40] VITALS: BP 116/82; PULSE 102; RESP 16; TEMP 36.6; O2SAT 98
== END 2024-08-10 15:40 | disposition home or self-care (01) | DRG 807 ==
PROVIDERS: Obstetrics & Gynecology; Admitting Provider Obstetrics & Gynecology; PCP Physician Assistant; Visit Provider Obstetrics & Gynecology
DX: O70.1 Second degree perineal laceration during delivery (principal); Z37.0 Single live birth; Z3A.38 38 weeks gestation of pregnancy; O99.214 Obesity complicating childbirth; E66.01 Morbid (severe) obesity due to excess calories; O99.344 Other mental disorders complicating childbirth; O24.425 Gestational diabetes mellitus in childbirth, controlled by oral hypoglycemic drugs; F41.9 Anxiety disorder, unspecified; F32.A Depression, unspecified
CPT/HCPCS: 36415; 36416; 51702; 59025; 59409; 80306; 82962; 85025; 85027; 86850; 86900; 99211; G0378; J2590; J2795; J3490; J7030; J7120